=== PATIENT | female | born 1965 | race African-American/Black ===

== ENCOUNTER → 2016-12-25 | Outpatient (CLI) | payer MEDICARE, MEDICAID ==
--- NOTE | 2016-12-25 16:22 | WOMENS IMAGING REPORT ---
EXAM DESCRIPTION: BILAT SCREENING MAMMO W/CAD COMPLETED DATE/TIME: 12/25/2016 2:05 pm REASON FOR STUDY: Z12.31, ROUTINE SCREENING MAMMO Z12.31 ENCNTR SCREEN MAMMOGRAM FOR MALIGNANT NEOP LASM OF RAMAN COMPARISON: None. TECHNIQUE: Standard craniocaudal and mediolateral oblique views of each breast recorded using Rocketskates[employer] l acquisition. LIMITATIONS: None. FINDINGS: RIGHT BREAST MASSES: No suspicious masses. CALCIFICATIONS: No new or suspicious calcifications. ARCHITECTURAL DISTORTION: None. DEVELOPING DENSITY: None. ASYMMETRY: Asymmetry in the right breast lateral CC view 11 cm from the nipple with increased density compare with previous. OTHER: No other significant findings. LEFT BREAST MASSES: No suspicious masses. CALCIFICATIONS: No new or suspicious calcifications. ARCHITECTURAL DISTORTION: None. DEVELOPING DENSITY: None. ASYMMETRY: None noted. OTHER: No other significant findings. Read with the assistance of CAD. .[facility] - R2 Cenova Version 1.3 .[facility] Imaging - R2 Cenova Version 1.3 .[facility] - R2 Cenova Version 2.4 .[facility] [place] - R2 Cenova Version 2.4 .[facility] - R2 Audio Tape Librarian Version 9.2 IMPRESSION: Asymmetry and density in the right breast BREAST DENSITY: d. The breasts are extremely dense, which lowers the sensitivity of mammography. BIRAD: 0 Incomplete: Needs Additional Imaging Evaluation and/or prior Mammograms for Comparison. RECOMMENDATION: RECOMMENDED FOLLOW-UP: Spot compression with ultrasound if indicated. The patient will be contacted for additional imaging. COMMENT: The patient has been notified of the results by letter per SA requirements. Additional no tification policies are in place for contacting patient with suspicious or incomplete findings. Quality ID #[id number]: The [employer] recommends an annual screening mammogram for women aged 40 years or over. This facility utilizes a reminder system to ensure that all patients receive reminder letters, and/or direct phone calls for appointments. This includes reminders for routine scr eening mammograms, diagnostic mammograms, or other Breast Imaging Interventions when appropriate. Th is patient will be placed in the appropriate reminder system. The [employer] (ACR) has developed recommendations for screening MRI of the breast s in certain patient populations, to be used in conjunction with mammography. Breast MRI surveillanc e may be appropriate for women with more than 20% lifetime risk of developing breast cancer as deter mined by genetic testing, significant family history of the disease, or history of mantle radiation f or Hodgkins Disease. ACR Practice Guidelines 2008. TECHNICAL DOCUMENTATION: FINDING NUMBER: (1) ASSESSMENT: (1) JOB ID: [id number] [employer]- All Rights Reserved
== END ==
LOC: WI 09:51
PROVIDERS: ATTEND Internal Medicine Geriatric Medicine
DX: Z12.31 Encounter for screening mammogram for malignant neoplasm of breast (principal)
CPT/HCPCS: 77067; G0202

== ENCOUNTER 2017-07-10 11:03 | Emergency (ER) | payer MEDICARE, MEDICAID ==
[2017-07-10] MEDS ORDERED: CLINDAMYCIN 900 MG/D5W RTU 50 ML IV ONE (12:36)
[2017-07-10] MEDS ORDERED: KETOROLAC TROMETHAMINE INJ/PF 30 MG/1 ML SDV IV ONE (12:37)
[2017-07-10] MEDS ORDERED: DEXAMETHASONE SOD PHOS INJ 10 MG/1 ML VIAL IV ONE (12:37)
[2017-07-10] MEDS ORDERED: ONDANSETRON HCL INJ/PF 4 MG/2 ML SDV IV ONE (12:37)
--- NOTE | 2017-07-10 13:16 | ER Document Report ---
ED General - General Chief Complaint: Pain All Over Stated Complaint: BODY ACHES Time Seen by Provider: 07/10/17 12:28 Notes: 51 yo female c/o throat pain and stiff neck x 5 days. hurts to swallow TRAVEL OUTSIDE OF THE [place] IN LAST 30 DAYS: No - HPI Onset/Duration: Gradual, Worse Quality of pain: Achy, Pressure Associated symptoms: Chills, Fever, Hoarseness, Nausea, Sore throat Exacerbated by: Food Relieved by: Denies Similar symptoms previously: No Recently seen / treated by doctor: No - Related Data Allergies/Adverse Reactions: fluphenazine enanthate [From Prolixin] Allergy (Verified 07/10/17 11:05) fluphenazine HCl [From Prolixin] Allergy (Verified 07/10/17 11:05) Past Medical History - General Information source: Patient - Social History Smoking Status: Current Every Day Smoker Frequency of alcohol use: Occasional Drug Abuse: None Lives with: Family Family History: Reviewed & Not Pertinent Patient has suicidal ideation: No Patient has homicidal ideation: No - Past Medical History Cardiac Medical History: Reports: Hx Hypercholesterolemia, Hx Hypertension Renal/ Medical History: Denies: Hx Peritoneal Dialysis GI Medical History: Reports: Hx Gastroesophageal Reflux Disease Psychiatric Medical History: Reports: Hx Schizoaffective Disorder - Immunizations Hx Diphtheria, Pertussis, Tetanus Vaccination: Yes Review of Systems - Review of Systems Constitutional: Chills, Fever, Malaise EENT: See HPI, Throat pain, Difficulty swallowing, Throat swelling Cardiovascular: No symptoms reported Respiratory: No symptoms reported Gastrointestinal: No symptoms reported Genitourinary: No symptoms reported Female Genitourinary: No symptoms reported Musculoskeletal: No symptoms reported Skin: No symptoms reported Hematologic/Lymphatic: No symptoms reported Neurological/Psychological: No symptoms reported Physical Exam - Vital signs Vitals: Temp Pulse Resp BP Pulse Ox 99.0 F 132 H 17 123/80 95 07/10/17 11:11 07/10/17 11:11 07/10/17 11:11 07/10/17 11:11 07/10/17 11:11 Interpretation: Normal - General General appearance: Appears well, Alert - HEENT Head: Normocephalic, Atraumatic Eyes: Normal Pupils: PERRL Tympanic membrane: Normal Pharynx: Erythema, Exudate, Tonsillar hypertrophy, Other - + trismus, + muffled voice - Respiratory Respiratory status: No respiratory distress Chest status: Nontender Breath sounds: Normal Chest palpation: Normal - Cardiovascular Rhythm: Regular Heart sounds: Normal auscultation Murmur: No - Abdominal Inspection: Normal Distension: No distension Bowel sounds: Normal Tenderness: Nontender Organomegaly: No organomegaly - Back Back: Normal, Nontender - Extremities General upper extremity: Normal inspection, Nontender, Normal color, Normal ROM , Normal temperature General lower extremity: Normal inspection, Nontender, Normal color, Normal ROM , Normal temperature, Normal weight bearing. No: Dakota's sign - Neurological Neuro grossly intact: Yes Cognition: Normal Orientation: AAOx4 Hebo Coma Scale Eye Opening: Spontaneous Luisa Coma Scale Verbal: Oriented Hebo Coma Scale Motor: Obeys Commands Hebo Coma Scale Total: 15 Speech: Normal Motor strength normal: LUE, RUE, LLE, RLE Sensory: Normal - Psychological Associated symptoms: Normal affect, Normal mood - Skin Skin Temperature: Warm Skin Moisture: Dry Skin Color: Normal Course - Re-evaluation Re-evalutation: 07/10/17 16:17 pt improved after meds. able to talk. drinking fluids without difficulty. CT negativee for abscess. +diffuse adenopathy. results reviewed with pt. no airway compromise. stable for discharge - Vital Signs Vital signs: Temp Pulse Resp BP Pulse Ox 99.0 F 132 H 17 123/80 95 07/10/17 11:11 07/10/17 11:11 07/10/17 11:11 07/10/17 11:11 07/10/17 11:11 - Laboratory Result Diagrams: 07/10/17 13:27 07/10/17 13:27 Laboratory results interpreted by me: 07/10/17 07/10/17 13:27 13:27 WBC 20.4 H RDW 16.1 H Band Neutrophils % 2 L Lymphocytes % (Manual) 11 L Metamyelocytes % 1 H Abs Neuts (Manual) 16.5 H Sodium 134.7 L Chloride 97 L Glucose 123 H AST 12 L Alkaline Phosphatase 147 H Discharge - Discharge Clinical Impression: Sore throat Disposition: HOME, SELF-CARE Instructions: Sore Throat ([facility]), IV Antibiotics ([facility]), Antibiotic Therapy ([facility]) , Toradol Injection ([facility]), Steroid Medication Injection, Steroid Medication Additional Instructions: please take antibiotics as prescribed take oral steroid as prescribed follow up with your primary care in the next 2 days for recheck return to ER for any worsening Prescriptions: Clindamycin HCl 300 mg PO QID #40 capsule Prednisone 20 mg PO BID #16 tablet Referrals: CONSTANZA VALLEJO MD [Primary Care Provider] - Follow up as needed
[2017-07-10 14:03] LABS: HEMATOCRIT 39.6 % (36.0-47.0); HEMOGLOBIN 13.2 g/dL (12.0-15.5); MEAN CORPUSCULAR HEMOGLOBIN 30.6 pg (27.0-33.4); MEAN CORPUSCULAR HGB CONC 33.4 g/dL (32.0-36.0); MEAN CORPUSCULAR VOLUME 91 fl (80-97); PLATELET COUNT 287 10^3/uL (150-450); RED BLOOD COUNT 4.33 10^6/uL (3.72-5.28); RED CELL DISTRIBUTION WIDTH 16.1 % (11.5-14.0); WHITE BLOOD COUNT 20.4 10^3/uL (4.0-10.5)
[2017-07-10 14:19] LABS: ABSOLUTE LYMPHOCYTES# (MANUAL) 2.9 10^3/uL (0.5-4.7); ABSOLUTE NEUTROPHILS# (MANUAL) 16.5 10^3/uL (1.7-8.2); BAND NEUTROPHILS % (MANUAL) 2 % (3-5); BASOPHILS % (MANUAL) 0 % (0-2); EOSINOPHILS % (MANUAL) 0 % (0-6); LYMPHOCYTES % (MANUAL) 11 % (13-45); METAMYELOCYTES % (MANUAL) 1 % (0); MONOCYTES % (MANUAL) 5 % (3-13); SEGMENTED NEUTROPHILS % (MAN) 78 % (42-78); TOTAL CELLS COUNTED 100
[2017-07-10 14:20] LABS: ANISOCYTOSIS 1+; PLATELET COMMENT ADEQUATE; POLYCHROMASIA 1+
[2017-07-10 14:25] LABS: ALANINE AMINOTRANSFERASE 21 U/L (9-52); ALBUMIN 3.8 g/dL (3.5-5.0); ALKALINE PHOSPHATASE 147 U/L (38-126); ANION GAP 10 (5-19); ASPARTATE AMINO TRANSFERASE 12 U/L (14-36); BILIRUBIN,DIRECT 0.3 mg/dL (0.0-0.4); BILIRUBIN,TOTAL 0.4 mg/dL (0.2-1.3); BLOOD UREA NITROGEN 11 mg/dL (7-20); CALCIUM 9.7 mg/dL (8.4-10.2); CARBON DIOXIDE 28 mmol/L (22-30); CHLORIDE 97 mmol/L (98-107); GLUCOSE 123 mg/dL (75-110); POTASSIUM 3.6 mmol/L (3.6-5.0); SODIUM 134.7 mmol/L (137-145); TOTAL PROTEIN 7.5 g/dL (6.3-8.2)
--- NOTE | 2017-07-10 15:34 | RADIOLOGY REPORT (SQ) ---
EXAM DESCRIPTION: CT SOFT TISSUE NECK WITH COMPLETED DATE/TIME: 07/10/2017 2:59 pm REASON FOR STUDY: ? peritonsillar abscess COMPARISON: None. TECHNIQUE: Post IV contrasted scanning from skull base through lung apices with review of bone, soft tissue and lung windows. Reconstructed coronal and sagittal MPR images reviewed. All images stored on PACS. All CT scanners at this facility use dose modulation, iterative reconstruction, and/or weight based d osing when appropriate to reduce radiation dose to as low as reasonably achievable (ALARA). [facility]: Dose Right [facility]: CareDose [facility]: Dose Right [facility]: Teradose 4D [facility]: POPSUGAR CONTRAST TYPE AND DOSE: contrast/concentration: Isovue 370.00 mg/ml; Total Contrast Delivered: 75.0 ml; Total Saline Delivered: 38.8 ml RENAL FUNCTION: Creatinine 0.8 RADIATION DOSE: CT Rad equipment meets quality standard of care and radiation dose reduction techniq ues were employed. CTDIvol: 17.1 mGy. DLP: 584 mGy-cm. . LIMITATIONS: None. FINDINGS: SKULL BASE: Bilateral basal ganglia calcifications are present. Chenega Bhatt atheroscler otic vascular calcification. Inferior brain in the field of view otherwise unremarkable. MAJOR SALIVARY GLANDS: No solid or cystic masses. No inflammatory changes. LYMPHADENOPATHY: Diffuse cervical adenopathy is present, right jugulodigastric lymph node 1.8 x 1.7 c m, left jugulodigastric lymph node 2.6 x 1.7 cm. Multiple other 1 cm short axis lymph nodes are seen throughout the bilateral carotid spaces and posterior triangles. MUCOSAL MASSES OR ASYMMETRY: No mucosal masses or asymmetry. Pharyngeal tonsils are not enlarged. N o inflammation along the deep aspect of the tonsils to suggest peritonsillar abscess. LARYNX/CORDS: No abnormal findings. VASCULAR STRUCTURES: The major vessels are patent. Please note that the internal carotid artery on t he right swings into the prevascular space, best shown on coronal image 42 LUNG APICES: Clear. BONES: Intact. THYROID: Normal size. No masses. PARANASAL SINUSES: Mucous membrane thickening inferior left maxillary sinus. OTHER: No other significant finding. IMPRESSION: No tonsillar or peritonsillar abscess Diffuse cervical adenopathy TECHNICAL DOCUMENTATION: JOB ID: [id number] Quality ID # [id number]: Final reports with documentation of one or more dose reduction techniques (e.g., Au tomated exposure control, adjustment of the mA and/or kV according to patient size, use of iterative reconstruction technique) 2010 [employer]- All Rights Reserved
[2017-07-10 17:01] VITALS: BP 115/78
== END 2017-07-10 17:01 | disposition home or self-care (01) ==
LOC: ER 11:03
DX: J02.9 Acute pharyngitis, unspecified (principal); J35.1 Hypertrophy of tonsils; R11.0 Nausea; R50.9 Fever, unspecified; R13.10 Dysphagia, unspecified; R49.0 Dysphonia; M43.6 Torticollis; I10 Essential (primary) hypertension; F17.200 Nicotine dependence, unspecified, uncomplicated; Z88.8 Allergy status to other drugs, medicaments and biological substances
CPT/HCPCS: 99284; 96375; 96365; 36415; 87040; 87070; 87880; 85025; 80053; 70491; J1885; J2405; J1100

== ENCOUNTER 2017-10-22 03:19 | Emergency (ER) | payer MEDICARE, MEDICAID ==
[2017-10-22] MEDS ORDERED: HYDROCODONE/ACETAMINOPHEN 5-325 MG TABLET PO ONE (04:05)
--- NOTE | 2017-10-22 04:09 | ER Document Report ---
HPI - HPI Patient complains to provider of: Foot pain Onset: Other - 2 weeks Onset/Duration: Worse Quality of pain: Achy Pain Level: 3 Context: Patient presents complaining of right foot pain for the past 2 weeks with left foot pain that just started yesterday. Patient states she has been seeing a offc spec regarding her right foot pain. Patient has been placed in a walking boot and has been having studies performed on an outpatient basis. Patient is poor historian. Patient denies any fever or injury. Patient also reports left knee tenderness. Associated Symptoms: Other - Bilateral foot pain. denies: Fever, Vomiting Exacerbated by: Movement, Walking Relieved by: Denies Similar symptoms previously: Yes Recently seen / treated by doctor: Yes - ROS ROS below otherwise negative: Yes Systems Reviewed and Negative: Yes All other systems reviewed and negative - CONSTITUTIONAL Constitutional: DENIES: Fever, Chills - NEURO Neurology: DENIES: Headache, Weakness - RESPIRATORY Respiratory: DENIES: Trouble Breathing, Coughing - GASTROINTESTINAL Gastrointestinal: DENIES: Nausea, Patient vomiting - REPRODUCTIVE Reproductive: DENIES: : - MUSCULOSKELETAL Musculoskeletal: REPORTS: Extremity pain, Swelling - Right foot - DERM Skin Color: Normal Skin Problems: None Past Medical History - General Information source: Patient - Social History Smoking Status: Current Every Day Smoker Smoking Education Provided: Yes Frequency of alcohol use: None Drug Abuse: None Lives with: Other - [facility] Family History: Reviewed & Not Pertinent - Past Medical History Cardiac Medical History: Reports: Hx Hypercholesterolemia, Hx Hypertension Renal/ Medical History: Denies: Hx Peritoneal Dialysis GI Medical History: Reports: Hx Gastroesophageal Reflux Disease Psychiatric Medical History: Reports: Hx Schizoaffective Disorder Surgical Hx: Negative - Immunizations Hx Diphtheria, Pertussis, Tetanus Vaccination: Yes Vertical Provider Document - CONSTITUTIONAL Agree With Documented VS: Yes Exam Limitations: No Limitations General Appearance: WD/WN, No Apparent Distress - INFECTION CONTROL TRAVEL OUTSIDE OF THE [place] IN LAST 30 DAYS: No - HEENT HEENT: Atraumatic, Normocephalic - NECK Neck: Normal Inspection - RESPIRATORY Respiratory: Breath Sounds Normal, No Respiratory Distress - CARDIOVASCULAR Cardiovascular: Regular Rate, Regular Rhythm Pulses: Normal: Dorsalis pedis - MUSCULOSKELETAL/EXTREMETIES Musculoskeletal/Extremeties: MAEW, Tender - Bilateral foot tenderness to medial midfoot area, right foot generalized 1-2+ edema, Edema Notes: Normal skin color and temperature overlying joint left knee and bilateral feet Left knee tenderness to medial inferior compartment, patient with cystic type mobile lesion - NEURO Level of Consciousness: Awake, Alert, Appropriate Motor/Sensory: No Motor Deficit - DERM Integumentary: Warm, Dry Course - Re-evaluation Re-evalutation: 10/22/17 06:[address] Steward, Dr Steward to bedside for examination. Does not recommend any additional testing. Recommends outpatient follow-up with her primary doctor for further evaluation. Does not suspect cellulitis given the appearance of the joint, no concern for abscess or septic arthritis. - Vital Signs Vital signs: Temp Pulse Resp BP Pulse Ox 99.0 F 91 16 118/70 97 10/22/17 03:28 10/22/17 03:28 10/22/17 03:28 10/22/17 03:28 10/22/17 03:28 - Laboratory Result Diagrams: 10/22/17 04:15 Laboratory results interpreted by me: 10/22/17 06:47 Labs- Entire Visit 10/22/17 10/22/17 04:15 04:15 WBC 12.6 H RBC 3.68 L Hgb 11.8 L Hct 34.5 L MCV 94 MCH 32.1 MCHC 34.2 RDW 15.8 H Plt Count 338 Seg Neutrophils % 75.8 Lymphocytes % 16.6 Monocytes % 5.7 Eosinophils % 1.5 Basophils % 0.4 Absolute Neutrophils 9.6 H Absolute Lymphocytes 2.1 Absolute Monocytes 0.7 Absolute Eosinophils 0.2 Absolute Basophils 0.1 ESR 67 H Uric Acid 5.3 C-Reactive Protein 45.4 H - Diagnostic Test Radiology reviewed: Pending, Image reviewed Discharge - Discharge Clinical Impression: Bilateral foot pain Arthralgia Qualifiers: Joint pain location: unspecified Qualified Code(s): M25.50 - Pain in unspecified joint Condition: Stable Disposition: HOME, SELF-CARE Instructions: Arthralgia ([facility]), Oral Narcotic Medication ([facility]), Toradol Injection ([facility]) Additional Instructions: Return immediately for any new or worsening symptoms Followup with your primary care provider, call tomorrow to make a followup appointment Follow-up with your offc spec or an orthopedic doctor for further evaluation Prescriptions: Hydrocodone/Acetaminophen [[place] 5-325 Tablet] 1 each PO Q8 PRN #12 tablet PRN Reason: Referrals: CONSTANZA VALLEJO MD [Primary Care Provider] - Follow up as needed [facility] [Provider Group] - Follow up as needed GLADYS SANTACRUZ DPM [ACTIVE STAFF] - Follow up as needed KAUSHIK GUZMAN DPM [ACTIVE STAFF] - Follow up as needed
[2017-10-22 04:28] LABS: ABSOLUTE BASOPHILS # (AUTO) 0.1 10^3/uL (0.0-0.2); ABSOLUTE EOSINOPHILS # (AUTO) 0.2 10^3/uL (0.0-0.6); ABSOLUTE LYMPHOCYTES (AUTO) 2.1 10^3/uL (0.5-4.7); ABSOLUTE MONOCYTES (AUTO) 0.7 10^3/uL (0.1-1.4); ABSOLUTE NEUT (AUTO) 9.6 10^3/uL (1.7-8.2); BASOPHILS % (AUTO) 0.4 % (0-2); EOSINOPHILS % (AUTO) 1.5 % (0-6); HEMATOCRIT 34.5 % (36.0-47.0); HEMOGLOBIN 11.8 g/dL (12.0-15.5); LYMPHOCYTES % (AUTO) 16.6 % (13-45); MEAN CORPUSCULAR HEMOGLOBIN 32.1 pg (27.0-33.4); MEAN CORPUSCULAR HGB CONC 34.2 g/dL (32.0-36.0); MEAN CORPUSCULAR VOLUME 94 fl (80-97); MONOCYTES % (AUTO) 5.7 % (3-13); PLATELET COUNT 338 10^3/uL (150-450); RED BLOOD COUNT 3.68 10^6/uL (3.72-5.28); RED CELL DISTRIBUTION WIDTH 15.8 % (11.5-14.0); SEGMENTED NEUTROPHILS % (AUTO) 75.8 % (42-78); TOTAL CELLS COUNTED % (AUTO) 100 %; WHITE BLOOD COUNT 12.6 10^3/uL (4.0-10.5)
[2017-10-22 04:41] LABS: C-REACTIVE PROTEIN 45.4 mg/L (<10.0); URIC ACID 5.3 mg/dL (2.5-7.5)
[2017-10-22 05:20] LABS: ERYTHROCYTE SEDIMENTATION RATE 67 mm/hr (0-30)
[2017-10-22] MEDS ORDERED: KETOROLAC TROMETHAMINE 60 MG/2 ML SDV IM ONE (06:47)
--- NOTE | 2017-10-22 08:03 | RADIOLOGY REPORT (SQ) ---
EXAM DESCRIPTION: FOOT RIGHT COMPLETE COMPLETED DATE/TIME: 10/22/2017 5:00 am REASON FOR STUDY: r foot pain, swelling COMPARISON: None. NUMBER OF VIEWS: Three views. TECHNIQUE: AP, lateral and oblique radiographic images acquired of the right foot. LIMITATIONS: None. FINDINGS: MINERALIZATION: Normal. BONES: No acute fracture or dislocation. No worrisome bone lesions. JOINTS: No effusions. SOFT TISSUES: No soft tissue swelling. No foreign body. OTHER: Small plantar heel spur. IMPRESSION: Small heel spur. No other significant soft tissue or bony abnormality. TECHNICAL DOCUMENTATION: JOB ID: [id number] [employer]- All Rights Reserved Reading location - IP/workstation name: [email or web address]
[2017-10-22 08:19] VITALS: BP 129/71
== END 2017-10-22 09:21 | disposition home or self-care (01) ==
LOC: ER 03:19
DX: M79.672 Pain in left foot (principal); M79.671 Pain in right foot; M25.50 Pain in unspecified joint; F17.200 Nicotine dependence, unspecified, uncomplicated; E78.00 Pure hypercholesterolemia, unspecified; I10 Essential (primary) hypertension
CPT/HCPCS: 99284; 96372; 36415; 84550; 85025; 85652; 86140; 73630; J1885; A9270

== ENCOUNTER → 2018-11-14 | Outpatient (CLI) | payer MEDICARE, MEDICAID ==
--- NOTE | 2018-11-14 12:01 | WOMENS IMAGING REPORT ---
EXAM DESCRIPTION: 3D SCREENING MAMMO BILAT COMPLETED DATE/TIME: 11/14/2018 11:40 am REASON FOR STUDY: Z12.31 ROUTINE 3D BILATERAL SCREENING Z12.31 ENCNTR SCREEN MAMMOGRAM FOR MALIGNAN T NEOPLASM OF RAMAN COMPARISON: 2016 EXAM PARAMETERS: Standard craniocaudal and mediolateral oblique views of each breast recorded using digital acquisition and breast tomosynthesis. Read with the assistance of CAD. .[facility] - R2 Construction Scheduler Version 9.2 LIMITATIONS: None. FINDINGS: Findings present which are benign by mammographic criteria. No suspicious masses, calcific ations or architectural distortion. Pertinent benign findings: Calcifications. Benign mammographic findings may include one or more of the following: Smooth masses, popcorn/rim/coa rse calcifications, asymmetries, post-procedure changes, and lesions with long-standing stability. IMPRESSION: Assessment: BENIGN MAMMOGRAPHIC FINDINGS. BIRADS 2 BREAST DENSITY: c. The breasts are heterogeneously dense, which may obscure small masses. BIRAD: 2 BENIGN FINDING(S) RECOMMENDATION: ROUTINE SCREENING COMMENT: The patient has been notified of the results by letter per SA requirements. Additional no tification policies are in place for contacting patient with suspicious or incomplete findings. Quality ID #[id number]: The [employer] recommends an annual screening mammogram for women aged 40 years or over. This facility utilizes a reminder system to ensure that all patients receive reminder letters, and/or direct phone calls for appointments. This includes reminders for routine scr eening mammograms, diagnostic mammograms, or other Breast Imaging Interventions when appropriate. Th is patient will be placed in the appropriate reminder system. TECHNICAL DOCUMENTATION: FINDING NUMBER: (1) ASSESSMENT: (1) JOB ID: [id number] [employer]- All Rights Reserved Reading location - IP/workstation name: [email or web address]
== END ==
LOC: WI 11:10
PROVIDERS: ATTEND Internal Medicine Geriatric Medicine
DX: Z12.31 Encounter for screening mammogram for malignant neoplasm of breast (principal)
CPT/HCPCS: 77063; 77067

== ENCOUNTER 2019-12-30 07:51 | Day surgery (SDC) | payer MEDICARE, MEDICAID ==
[~2019-12-30 07:51] MED LIST: KETOROLAC TROMETHAMINE 0.45% 4 DROP/0.4 ML DROPERETTE OS PRN
[2019-12-30] MEDS: TETRACAINE HCL 0.5% OPH SOLN 4 ML OS PRN ×4 (08:26→08:52)
[2019-12-30] MEDS: CYCLOPENTOLATE 0.2%/PHENYLEPHRINE 1% OPH SOLN 2 ML OS PRN ×3 (08:26→08:42)
[2019-12-30] MEDS: TROPICAMIDE 1% OPH SOLN 15 ML OS PRN ×3 (08:27→08:42)
[2019-12-30] MEDS: BESIFLOXACIN HCL 0.6% OPH SUSP 5 ML BOTTLE OS PRN ×4 (08:27→09:16)
[2019-12-30] MEDS ORDERED: FENTANYL CITRATE INJ/PF 100 MCG/2 ML AMPUL ONE (08:34)
[2019-12-30] MEDS ORDERED: MIDAZOLAM 2 MG/2 ML INJ ONE (08:34)
[2019-12-30] MEDS: CHONDR SU A NA/HYALUR INTRAOC KIT (SURGICARE) ONE ×2 (09:03)
[2019-12-30] MEDS: EPINEPHRINE INJ/PF 1 MG/1 ML AMPULE ONE ×2 (09:03)
[2019-12-30] MEDS: LIDOCAINE 1%/PHENYLEPHRINE 1.5% 1 ML VIAL ONE ×2 (09:04)
[2019-12-30] MEDS: DORZOLAMIDE HCL 2%/TIMOLOL MALEAT 0.5% OPH SOLN 10 ML OS PRN ×2 (09:16)
--- NOTE | 2019-12-30 11:08 | Operative Report ---
Operative Report-[facility] Operative Report: DATE OF SURGERY: December 30, 2019 PREOPERATIVE DIAGNOSIS: NUCLEAR CATARACT, LEFT EYE. Glaucoma POSTOPERATIVE DIAGNOSIS: NUCLEAR CATARACT, LEFT EYE. Glaucoma PROCEDURE PERFORMED: PHACOEMULSIFICATION WITH POSTERIOR CHAMBER INTRAOCULAR LENS IMPLANT, LEFT EYE. With mariama SURGEON: Daniel Salgado DO MEDICATIONS AND ANESTHESIA: Versed: IV Versed Tetracaine drops: 1 to 2 drops given as needed COMPLICATION: [None] INDICATIONS FOR SURGERY: Medical necessity: Best corrected visual acuity worse than 20/40 secondary to cataracts with impairment of ability to carry out needs or desired activities, blurred vision, visual distortion, reduced contrast sensitivity and/or glare with association functional impairment and supporting documentation/testing, and cataracts causing symptomatic impairment of visual functions not corrected with tolerable changes in glasses or contact lenses interfering with activities of daily life. PROCEDURE: Consent: The risks, benefits and alternatives of this procedures was discussed with the patient. The patient read and signed the consent forms, was identified and was seated in the exam chair. IOL: [ ] IOL Diopters: [] Phacoemulsification with posterior chamber intraocular lens implant: The face was prepped with 5% povidone iodine solution, and a few drops of 5% povidone iodine solution was instilled into the inferior fornix. A non-fenestrated drape was placed over the eye and the lids were parted with the speculum. A paracentesis was made with a 15 degree blade, and 1% lidocaine MPF followed by viscoelastic was injected into the anterior chamber. A 2.4 mm metal micro- keratome was used to create a temporal clear corneal incision. A circular anterior capsulorrhexis was created, followed by hydro-dissection and hydro- delineation. The phacoemulsification hand piece was inserted and the nucleus was removed with the Phaco chop technique. The irrigation-aspiration hand piece was used to remove the residual cortex, and vacuum the posterior capsule. The capsular bag was inflated and viscoelastic and the above-mentioned IOL was injected into the eye with care to insert both leaning and trailing haptics in the capsular bag. The irrigation/aspiration hand piece was reinserted to remove residual viscoelastic from the capsular bag and anterior chamber. The corneal incision was hydrated, and anterior chamber was inflated with sterile BSS via the paracentesis site, and found to be watertight. In addition Istent inject was used, 2 stents were placed approximately 2 clock hours apart Postop medication:1 drop of prednisolone into operative by followed by 1 drop of Cosopt into operative eye followed by 1 drop of Besivance intraoperative by Other: []
== END 2019-12-30 10:04 | disposition home or self-care (01) ==
LOC: SC 07:51
PROVIDERS: ATTEND Ophthalmology
DX: H25.12 Age-related nuclear cataract, left eye (principal); H40.1131 Primary open-angle glaucoma, bilateral, mild stage; Z88.8 Allergy status to other drugs, medicaments and biological substances; I10 Essential (primary) hypertension; E78.00 Pure hypercholesterolemia, unspecified; K21.9 Gastro-esophageal reflux disease without esophagitis; F17.210 Nicotine dependence, cigarettes, uncomplicated
CPT/HCPCS: 66984; 0191T; C1783; V2632; J2250; J3490 ×2; A9270; J0171; J3010

== ENCOUNTER 2020-01-13 13:33 | Day surgery (SDC) | payer MEDICARE, MEDICAID ==
[~2020-01-13 13:33] MED LIST changes: +CHONDR SU A NA/HYALUR INTRAOC KIT (SURGICARE) ONE; +EPINEPHRINE INJ/PF 1 MG/1 ML AMPULE ONE; +KETOROLAC TROMETHAMINE 0.45% 4 DROP/0.4 ML DROPERETTE OD PRN; -KETOROLAC TROMETHAMINE 0.45% 4 DROP/0.4 ML DROPERETTE OS PRN; +LIDOCAINE 1%/PHENYLEPHRINE 1.5% 1 ML VIAL ONE
[2020-01-13] MEDS: BESIFLOXACIN HCL 0.6% OPH SUSP 5 ML BOTTLE OD PRN ×4 (14:00→14:56)
[2020-01-13] MEDS: CYCLOPENTOLATE 0.2%/PHENYLEPHRINE 1% OPH SOLN 2 ML OD PRN ×3 (14:00→14:20)
[2020-01-13] MEDS: TETRACAINE HCL 0.5% OPH SOLN 4 ML OD PRN ×3 (14:00→14:34)
[2020-01-13] MEDS: TROPICAMIDE 1% OPH SOLN 15 ML OD PRN ×3 (14:00→14:20)
[2020-01-13] MEDS ORDERED: FENTANYL CITRATE INJ/PF 100 MCG/2 ML AMPUL ONE (14:14)
[2020-01-13] MEDS ORDERED: MIDAZOLAM 2 MG/2 ML INJ ONE (14:14)
[2020-01-13] MEDS ORDERED: EPINEPHRINE INJ/PF 1 MG/1 ML AMPULE ONE (14:18)
[2020-01-13] MEDS: DORZOLAMIDE HCL 2%/TIMOLOL MALEAT 0.5% OPH SOLN 10 ML OD PRN ×2 (14:56)
--- NOTE | 2020-01-13 15:04 | Operative Report ---
Operative Report-[facility] Operative Report: DATE OF SURGERY: January 13, 2020 PREOPERATIVE DIAGNOSIS: NUCLEAR CATARACT, RIGHT EYE., Glaucoma POSTOPERATIVE DIAGNOSIS: NUCLEAR CATARACT, RIGHT EYE. Glaucoma PROCEDURE PERFORMED: PHACOEMULSIFICATION WITH POSTERIOR CHAMBER INTRAOCULAR LENS IMPLANT, RIGHT EYE. I stent inject SURGEON: Daniel Salgado DO MEDICATIONS AND ANESTHESIA: Versed: IV Versed Tetracaine drops: 1 to 2 drops given as needed COMPLICATION: None INDICATIONS FOR SURGERY: Medical necessity: Best corrected visual acuity worse than 20/40 secondary to cataracts with impairment of ability to carry out needs or desired activities, blurred vision, visual distortion, reduced contrast sensitivity and/or glare with association functional impairment and supporting documentation/testing, and cataracts causing symptomatic impairment of visual functions not corrected with tolerable changes in glasses or contact lenses interfering with activities of daily life. PROCEDURE: Consent: The risks, benefits and alternatives of this procedures was discussed with the patient. The patient read and signed the consent forms, was identified and was seated in the exam chair. IOL: MX 60 E 21.5 IOL Diopters: Phacoemulsification with posterior chamber intraocular lens implant: The face was prepped with 5% povidone iodine solution, and a few drops of 5% povidone iodine solution was instilled into the inferior fornix. A non-fenestrated drape was placed over the eye and the lids were parted with the speculum. A paracentesis was made with a 15 degree blade, and 1% lidocaine MPF followed by viscoelastic was injected into the anterior chamber. A 2.4 mm metal micro- keratome was used to create a temporal clear corneal incision. A circular anteri or capsulorrhexis was created, followed by hydro-dissection and hydro- delineation. The phacoemulsification hand piece was inserted and the nucleus was removed with the Phaco chop technique. The irrigation-aspiration hand piece was used to remove the residual cortex, and vacuum the posterior capsule. The capsular bag was inflated and viscoelastic and the above-mentioned IOL was injected into the eye with care to insert both leaning and trailing haptics in the capsular bag. The irrigation/aspiration hand piece was reinserted to remove residual viscoelastic from the capsular bag and anterior chamber. The corneal incision was hydrated, and anterior chamber was inflated with sterile BSS via the paracentesis site, and found to be watertight. In addition I stent inject was used to place 2 stents approximately 2 clock hours apart Postop medication: 1 drop of prednisolone into operative by followed by 1 drop of Cosopt into operative eye followed by 1 drop of Besivance intraoperative by other:
== END 2020-01-13 15:28 ==
LOC: SC 13:33
PROVIDERS: ATTEND Ophthalmology
DX: H25.11 Age-related nuclear cataract, right eye (principal); H40.1111 Primary open-angle glaucoma, right eye, mild stage; Z88.8 Allergy status to other drugs, medicaments and biological substances; I10 Essential (primary) hypertension; E78.00 Pure hypercholesterolemia, unspecified; K21.9 Gastro-esophageal reflux disease without esophagitis; Z98.42 Cataract extraction status, left eye
CPT/HCPCS: 66984; 0191T; C1783; V2632; J2250; J3490 ×2; A9270; J0171; J3010

== ENCOUNTER 2020-06-17 16:39 | Inpatient (IN) | payer MEDICARE, MEDICAID ==
--- NOTE | 2020-06-17 18:08 | ER Document Report ---
ED Medical Screen (RME) - General Stated Complaint: RASH AND PAIN Time Seen by Provider: 06/17/20 17:58 Primary Care Provider: CONSTANZA VALLEJO MD [Primary Care Provider] - Follow up as needed Notes: Patient presents complaining of rash for the past week. Patient was started on antibiotics for possible skin infection and states that her rashes continue to worsen. Patient states she has leg pain and feels as though she is unable to walk due to the pain. Patient states she almost fell at home. Patient with a history of hypertension acid reflux and schizophrenia. I have greeted and performed a rapid initial assessment of this patient. A comprehensive ED assessment and evaluation of the patient, analysis of test results and completion of the medical decision making process will be conducted by additional ED providers. TRAVEL OUTSIDE OF THE [place] IN LAST 30 DAYS: No - Related Data Allergies/Adverse Reactions: fluphenazine enanthate [From Prolixin] Allergy (Verified 07/10/17 11:05) fluphenazine HCl [From Prolixin] Allergy (Verified 07/10/17 11:05) Past Medical History - Past Medical History Cardiac Medical History: Reports: Hx Hypercholesterolemia, Hx Hypertension Denies: Hx Heart Attack Pulmonary Medical History: Denies: Hx Asthma Neurological Medical History: Denies: Hx Cerebrovascular Accident, Hx Seizures Renal/ Medical History: Denies: Hx Peritoneal Dialysis GI Medical History: Reports: Hx Gastroesophageal Reflux Disease. Denies: Hx Hepatitis, Hx Hiatal Hernia Psychiatric Medical History: Reports: Hx Schizoaffective Disorder Infectious Medical History: Denies: Hx Hepatitis Past Surgical History: Denies: Hx Mastectomy, Hx Open Heart Surgery, Hx Pacemaker. Comment Only: Hx Hysterectomy - ([facility]-unable to answer) - Immunizations Hx Diphtheria, Pertussis, Tetanus Vaccination: Yes Physical Exam - Vital signs Vitals: Temp Pulse Resp BP Pulse Ox 99.2 F 116 H 20 119/63 95 06/17/20 16:44 06/17/20 16:44 06/17/20 16:44 06/17/20 16:44 06/17/20 16:44 - Skin Skin Temperature: Warm Skin Moisture: Dry Skin Color: Erythema - Patient with erythematous rash to bilateral lower extremities. Patient with some lesions that measure 2 to 3 mm in diameter and other lesions that have coalesced, patient with exquisite tenderness with minimal palpation of the legs Course - Vital Signs Vital signs: Temp Pulse Resp BP Pulse Ox 99.2 F 116 H 20 119/63 95 06/17/20 16:44 06/17/20 16:44 06/17/20 16:44 06/17/20 16:44 06/17/20 16:44 Doctor's Discharge - Discharge Referrals: CONSTANZA VALLEJO MD [Primary Care Provider] - Follow up as needed
[2020-06-17 19:15] LABS: ABSOLUTE BASOPHILS # (AUTO) 0.1 10^3/uL (0.0-0.2); ABSOLUTE EOSINOPHILS # (AUTO) 0.1 10^3/uL (0.0-0.6); ABSOLUTE LYMPHOCYTES (AUTO) 1.5 10^3/uL (0.5-4.7); ABSOLUTE MONOCYTES (AUTO) 1.3 10^3/uL (0.1-1.4); ABSOLUTE NEUT (AUTO) 15.1 10^3/uL (1.7-8.2); BASOPHILS % (AUTO) 0.6 % (0-2); EOSINOPHILS % (AUTO) 0.7 % (0-6); HEMATOCRIT 37.3 % (36.0-47.0); HEMOGLOBIN 12.9 g/dL (12.0-15.5); LYMPHOCYTES % (AUTO) 8.4 % (13-45); MEAN CORPUSCULAR HEMOGLOBIN 30.6 pg (27.0-33.4); MEAN CORPUSCULAR HGB CONC 34.6 g/dL (32.0-36.0); MEAN CORPUSCULAR VOLUME 88 fl (80-97); MONOCYTES % (AUTO) 7.3 % (3-13); PLATELET COUNT 329 10^3/uL (150-450); RED BLOOD COUNT 4.22 10^6/uL (3.72-5.28); RED CELL DISTRIBUTION WIDTH 16.8 % (11.5-14.0); TOTAL CELLS COUNTED % (AUTO) 100 %; WHITE BLOOD COUNT 18.3 10^3/uL (4.0-10.5)
[2020-06-17 19:34] LABS: ALBUMIN 3.6 g/dL (3.5-5.0); ALKALINE PHOSPHATASE 161 U/L (38-126); ANION GAP 9 (5-19); ASPARTATE AMINO TRANSFERASE 14 U/L (14-36); BILIRUBIN,DIRECT 0.3 mg/dL (0.0-0.4); BILIRUBIN,TOTAL 0.6 mg/dL (0.2-1.3); BLOOD UREA NITROGEN 16 mg/dL (7-20); CALCIUM 9.5 mg/dL (8.4-10.2); CARBON DIOXIDE 28 mmol/L (22-30); CHLORIDE 98 mmol/L (98-107); GLUCOSE 149 mg/dL (75-110); POTASSIUM 3.8 mmol/L (3.6-5.0); TOTAL PROTEIN 7.7 g/dL (6.3-8.2)
--- NOTE | 2020-06-17 21:28 | ER Document Report ---
ED General - General Stated Complaint: RASH AND PAIN Time Seen by Provider: 06/17/20 17:58 Primary Care Provider: CONSTANZA VALLEJO MD [Primary Care Provider] - Follow up as needed TRAVEL OUTSIDE OF THE [place] IN LAST 30 DAYS: No - HPI Context: Chief Complaint: [Bilateral leg rash and pain] [This is a 54-year-old female presenting with a bilateral lower extremity rash that has been present for a week. Patient has a patient of Dr. Renee shaw. Patient states she was put on antibiotics earlier this week without improvement in the symptoms. Patient states rash is painful and makes it very difficult for her to walk. ] History obtained from [patient] Symptoms began:[1 week ago] Onset: [Gradual] Timing: [Gradual] Quality: [Sharp] Intensity: [5 out of 5] Location: [Bilateral lower legs] Radiation: [Denies] [The pain does not migrate to a new location.] Aggravating factors: [none] Relieving factors: [none] [Denies] SOB [Denies] nausea [Denies] vomiting [Denies] sweats [Denies] fever [Denies] cough - Related Data Allergies/Adverse Reactions: fluphenazine enanthate [From Prolixin] Allergy (Verified 07/10/17 11:05) fluphenazine HCl [From Prolixin] Allergy (Verified 07/10/17 11:05) Past Medical History - General Information source: Patient - Social History Smoking Status: Unknown if Ever Smoked Family History: Reviewed & Not Pertinent - Past Medical History Cardiac Medical History: Reports: Hx Hypercholesterolemia, Hx Hypertension Denies: Hx Heart Attack Pulmonary Medical History: Denies: Hx Asthma Neurological Medical History: Denies: Hx Cerebrovascular Accident, Hx Seizures Renal/ Medical History: Denies: Hx Peritoneal Dialysis GI Medical History: Reports: Hx Gastroesophageal Reflux Disease. Denies: Hx Hepatitis, Hx Hiatal Hernia Psychiatric Medical History: Reports: Hx Schizoaffective Disorder Infectious Medical History: Denies: Hx Hepatitis Past Surgical History: Denies: Hx Mastectomy, Hx Open Heart Surgery, Hx Pacemaker. Comment Only: Hx Hysterectomy - ([facility]-unable to answer) - Immunizations Hx Diphtheria, Pertussis, Tetanus Vaccination: Yes Review of Systems - Review of Systems Notes: Review of systems as below unless otherwise stated in HPI. CONSTITUTIONAL [No] fever, [No] chills. EYES [No] eye pain. ENT [No] URI symptoms, [No] sore throat, [No] ear pain. CARDIOVASCULAR [No] chest pain, [No] palpitations, [No] edema. RESPIRATORY [No] Cough, [No] SOB, [No] wheezing. GASTROINTESTINAL [No] abdominal pain, [No] nausea, [No] Diarrhea, [No] Vomiting, [No] constipation, [No] melena, [No] rectal bleeding. GENITOURINARY [No] dysuria, [No] urinary frequency, [No] hematuria, [No] urinary urgency, [No] vaginal discharge, [No] vaginal bleeding. MUSCULOSKELETAL [No] Back pain. Positive leg pain SKIN Positive rash. NEUROLOGIC [No] Headache, [No] recent seizures, [No] paralysis,[No] parathesias. ENDOCRINE [No] polyuria. HEMO/LYMPATIC [No] easy brusing PSYCHIATRIC [No] depression. Physical Exam - Vital signs Vitals: Temp Pulse Resp BP Pulse Ox 99.2 F 116 H 20 119/63 95 06/17/20 16:44 06/17/20 16:44 06/17/20 16:44 06/17/20 16:44 06/17/20 16:44 - Notes Notes: CONSTITUTIONAL [Vital signs reviewed, Patient appears somewhat uncomfortable, Alert and oriented X 3, Normal stature.] HEAD [Atraumatic, Normocephalic.] EYES [Eyes are normal to inspection, No discharge from eyes, Extraocular muscles intact, Sclera are normal, Conjunctiva are normal.] ENT [External ears normal to inspection, Nose examination normal, Mouth normal to inspection.] NECK [Normal ROM, No jugular venous distention, No meningeal signs, ] RESPIRATORY CHEST [Chest is nontender, Breath sounds normal, No respiratory distress.] CARDIOVASCULAR [RRR, No murmurs, Normal S1 S2, No rub, No gallop.] ABDOMEN [Abdomen is nontender, No pulsatile masses, No other masses, Bowel sounds normal, No distension, No peritoneal signs, No hernias.] BACK [There is no CVA Tenderness, There is no tenderness to palpation, Normal inspection.] UPPER EXTREMITY [Inspection normal, No cyanosis, No clubbing, No edema, LOWER EXTREMITY Patient has multiple areas of nonconfluent darkly erythematous nonblanching lesions present on her lower legs that are circumferential NEURO [No focal motor deficits, No focal sensory deficits, Speech normal.] SKIN See lower extremity exam] PSYCHIATRIC [flat affect. ] Course - Re-evaluation Re-evalutation: 06/18/20 00:11 Results of ED MSE discussed with patient. Recommendation for admission discussed with patient. Patient is agreeable to this. - Vital Signs Vital signs: Temp Pulse Resp BP Pulse Ox 99.2 F 116 H 20 119/63 95 06/17/20 16:44 06/17/20 16:44 06/17/20 16:44 06/17/20 16:44 06/17/20 16:44 - Laboratory Results Result Diagrams: 06/17/20 18:50 06/17/20 18:50 Laboratory Results Interpreted: 06/17/20 06/17/20 06/17/20 18:50 18:50 22:59 WBC 18.3 H RDW 16.8 H Lymph % (Auto) 8.4 L Absolute Neuts (auto) 15.1 H Seg Neutrophils % 83.0 H Sodium 134.9 L Est GFR (MDRD) Non-Af 54 L Glucose 149 H Alkaline Phosphatase 161 H Urine Protein 100 H Urine Ketones TRACE H Urine Blood LARGE H Urine Bilirubin SMALL H Urine Urobilinogen 4.0 H Leukocyte Esterase Rfl TRACE H Critical Laboratory Results Reviewed: Yes Attending or Supervising Physician who Reviewed Labs: MELVIN NORIEGA IV - White count 18.3, rapid Covid test was negative - Radiology Results Critical Radiology Results Reviewed: No Critical Results - Consults Dr. Jenkins Time consulted: 21:25 - Dr. Jenkins agreed to admit the patient but once a Covid swab done to determine what floor the patient goes to Reason for consultation: 06/17/20 21:58 Leukocytosis and vasculitis Discharge - Discharge Clinical Impression: Vasculitis Leukocytosis, unspecified Qualifiers: Leukocytosis type: unspecified Qualified Code(s): D72.829 - Elevated white blood cell count, unspecified Disposition: ADMITTED INPATIENT Admitting Provider: Renee Unit Admitted: Telemetry Referrals: CONSTANZA VALLEJO MD [Primary Care Provider] - Follow up as needed
[2020-06-17] MEDS ORDERED: HYDROCODONE/ACETAMINOPHEN 5-325 MG TABLET PO ONE (21:34)
[2020-06-17 23:16] LABS: APPEARANCE,URINE CLOUDY; BILIRUBIN,URINE SMALL (NEGATIVE); COLOR,URINE AMBER; GLUCOSE, URINE NEGATIVE (NEGATIVE); KETONES,URINE TRACE mg/dL (NEGATIVE); PROTEIN,URINE 100 mg/dL (NEGATIVE); URINE SPECIFIC GRAVITY 1.028
[2020-06-17 23:29] LABS: URINE AMPHETAMINES SCREEN NEGATIVE; URINE BARBITURATES SCREEN NEGATIVE; URINE BENZODIAZEPINES SCREEN NEGATIVE; URINE COCAINE SCREEN NEGATIVE; URINE MARIJUANA (THC) SCREEN NEGATIVE; URINE METHADONE SCREEN NEGATIVE; URINE PHENCYCLIDINE SCREEN NEGATIVE
[2020-06-18 01:51] LABS: URINE PROTEIN 50.5 mg/dL (<12)
[2020-06-18 01:53] LABS: PHOSPHORUS 4.4 mg/dL (2.5-4.5)
[2020-06-18] MEDS ORDERED: DOXYCYCLINE HYCLATE 100 MG TABLET PO ONE ×2 (02:00→03:44)
[2020-06-18 02:07] LABS: UR PRO/CREAT RATIO RESULT 0.1 mg/mg (0.0-0.2); URINE CREATININE 564.5 mg/dL (15-278)
[2020-06-18 02:25] LABS: INTERNATIONAL RATION (INR) 1.28; PROTHROMBIN TIME 16.2 SEC (11.4-15.4)
[2020-06-18 02:26] LABS: PARTIAL THROMBOPLASTIN TIME 30.6 SEC (23.5-35.8)
[2020-06-18 02:52] LABS: CREATINE KINASE MB < 0.22 ng/mL (<4.55); TROPONIN I < 0.012 ng/mL
[2020-06-18 03:01] LABS: C-REACTIVE PROTEIN 306.5 mg/L (<10.0)
[2020-06-18 03:04] LABS: FREE T4 (FREE THYROXINE) 1.39 ng/dL (0.78-2.19)
[2020-06-18 03:55] LABS: THYROID STIMULATING HORMONE 1.28 uIU/mL (0.47-4.68)
[2020-06-18 08:45] LABS: CREATINE KINASE MB < 0.22 ng/mL (<4.55); TROPONIN I < 0.012 ng/mL
[2020-06-18] MEDS: DOXYCYCLINE HYCLATE 100 MG TABLET PO SCH ×2 (10:11→21:52)
[2020-06-18] MEDS: HYDROCODONE/ACETAMINOPHEN 10-325 MG TABLET PO PRN ×2 (14:27→20:07)
[2020-06-18 15:23] LABS: CREATINE KINASE MB < 0.22 ng/mL (<4.55); TROPONIN I < 0.012 ng/mL
--- NOTE | 2020-06-18 16:53 | PDOC H&P ---
History of Present Illness Admission Date/PCP: 06/18/20 00:43 CONSTANZAGWENDOLYN VALLEJO History of Present Illness: SOLO LANGE is a 54 year old female, She has a history of obesity, she came to the emergency room for evaluation of 1 week history of progressive painful erythema of both legs extending from the ankle to the lower part of the thigh. The erythema is distributed randomly it is not confluent there are areas of nodules, it is not consistent with cellulitis, it looks like a primary skin disease or it could also represent a drug rash. She has a history of schizophrenia, she is supposedly on psychotropic drugs, history taking is also very challenging in this patient.The erythema is predominantly distributed in the lower extremities, the torso is not affected, the upper extremities are affected, on inspection of the feet, the sole of the feet is very scaly and dry Past Medical History Cardiac Medical History: Reports: Hyperlipidema, Hypertension GI Medical History: Reports: Gastroesophageal Reflux Disease Psychiatric Medical History: Reports: Depression, Schizoaffective Disorder Hematology: Reports: Anemia Past Surgical History Past Surgical History: Comment Only: Hysterectomy - ([facility]-unable to answer) Social History Smoking Status: Current Every Day Smoker Cigarettes Packs Per Day: 0.5 Electronic Cigarette use?: No Last Time Smoked: 06/17/2020 Frequency of Alcohol Use: None Hx Recreational Drug Use: No Drugs: None Hx Prescription Drug Abuse: No Family History Family History: Reviewed & Not Pertinent Parental Family History Reviewed: Yes Children Family History Reviewed: Yes Sibling(s) Family History Reviewed.: Yes Medication/Allergy Home Medications: Acyclovir [Zovirax 200 mg Capsule] 200 mg PO BID 09/19/15 Ergocalciferol (Vitamin D2) [Vitamin D2] 50,000 unit PO TUFR PRN 09/19/15 Amlodipine Besylate [Norvasc 10 mg Tablet] 10 mg PO DAILY #30 tablet 09/21/15 Hydrochlorothiazide 25 mg PO DAILY #30 tablet 09/21/15 Acetaminophen [Tylenol 325 mg Tablet] 650 mg PO Q4HP PRN 06/18/20 Aspirin [Ecotrin 81 mg EC Tablet] 81 mg PO DAILY 06/18/20 Cephalexin Monohydrate [Keflex 500 mg Capsule] 500 mg PO Q12 06/18/20 Citalopram Hydrobromide [Celexa 20 mg Tablet] 20 mg PO DAILY 06/18/20 Famotidine [Acid Controller] 40 mg PO QHS 06/18/20 Guaifenesin/D-Methorphan Hb [Robitussin-Dm Syrup 10 Ml Udcup] 10 ml PO Q4HP PRN 06/18/20 Lorazepam [Ativan 0.5 mg Tablet] 0.5 mg PO DAILYP PRN 06/18/20 Norgestimate-Ethinyl Estradiol [Tri-Sprintec] 1 each PO DAILY 06/18/20 Rosuvastatin Calcium [Crestor] 20 mg PO DAILY 06/18/20 Sennosides/Docusate Sodium [Senna Plus 8.6-50 mg Tablet] 2 each PO HSP PRN 06/18/20 Simethicone 125 mg PO QIDP PRN 06/18/20 Tramadol HCl [Ultram 50 mg Tablet] 50 mg PO Q6HP PRN 06/18/20 Allergies/Adverse Reactions: fluphenazine enanthate [From Prolixin] Allergy (Verified 07/10/17 11:05) fluphenazine HCl [From Prolixin] Allergy (Verified 07/10/17 11:05) Review of Systems Constitutional: ABSENT: chills, fever(s), headache(s), weight gain, weight loss Eyes: ABSENT: visual disturbances Ears: ABSENT: hearing changes Cardiovascular: ABSENT: chest pain, dyspnea on exertion, edema, orthropnea, palpitations Respiratory: ABSENT: cough, hemoptysis Gastrointestinal: ABSENT: abdominal pain, constipation, diarrhea, hematemesis, hematochezia, nausea, vomiting Genitourinary: ABSENT: dysuria, hematuria Musculoskeletal: ABSENT: joint swelling Integumentary: PRESENT: erythema Neurological: ABSENT: abnormal gait, abnormal speech, confusion, dizziness, focal weakness, syncope Psychiatric: ABSENT: anxiety, depression, homidical ideation, suicidal ideation Endocrine: ABSENT: cold intolerance, heat intolerance, menstrual abnormalities, polydipsia, polyuria Hematologic/Lymphatic: ABSENT: easy bleeding, easy bruising, lymphadenopathy Physical Exam Vital Signs: Temp Pulse Resp BP Pulse Ox 97.8 F 114 H 19 118/60 96 06/18/20 14:53 06/18/20 14:53 06/18/20 14:53 06/18/20 14:53 06/18/20 14:53 Intake & Output 0106/18/20 06/19/20 06:59 06:59 06:59 Intake Total 120 560 Output Total 400 400 Balance -280 160 Weight 116.2 kg General appearance: PRESENT: no acute distress Head exam: PRESENT: atraumatic, normocephalic Eye exam: PRESENT: PERRLA Ear exam: PRESENT: normal external ear exam Neck exam: PRESENT: full ROM Respiratory exam: PRESENT: clear to auscultation chelsea Cardiovascular exam: PRESENT: RRR, +S1, +S2 GI/Abdominal exam: PRESENT: normal bowel sounds, soft Rectal exam: PRESENT: deferred Neurological exam: PRESENT: alert, CN II-XII grossly intact Psychiatric exam: PRESENT: appropriate affect, normal mood Skin exam: PRESENT: dry, erythema, intact, warm Results Laboratory Results: 06/17/20 18:50 06/17/20 18:50 06/17/20 06/17/20 06/17/20 18:50 18:50 18:50 WBC 18.3 H RBC 4.22 Hgb 12.9 Hct 37.3 MCV 88 MCH 30.6 MCHC 34.6 RDW 16.8 H Plt Count 329 Seg Neutrophils % 83.0 H Sodium 134.9 L Potassium 3.8 Chloride 98 Carbon Dioxide 28 Anion Gap 9 BUN 16 Creatinine 1.06 Est GFR ( Amer) > 60 Glucose 149 H Calcium 9.5 Phosphorus 4.4 Magnesium 2.0 Total Bilirubin 0.6 AST 14 Alkaline Phosphatase 161 H C-Reactive Protein 306.5 H Total Protein 7.7 Albumin 3.6 Amylase 47 Lipase 55.9 TSH Free T4 Urine Color Urine Appearance Urine pH Ur Specific Bath Urine Protein Urine Glucose (UA) Urine Ketones Urine Blood Urine RBC (Auto) 06/17/20 06/17/20 18:50 22:59 WBC RBC Hgb Hct MCV MCH MCHC RDW Plt Count Seg Neutrophils % Sodium Potassium Chloride Carbon Dioxide Anion Gap BUN Creatinine Est GFR ( Amer) Glucose Calcium Phosphorus Magnesium Total Bilirubin AST Alkaline Phosphatase C-Reactive Protein Total Protein Albumin Amylase Lipase TSH 1.28 Free T4 1.39 Urine Color LAM Urine Appearance CLOUDY Urine pH 5.0 Ur Specific Bath 1.028 Urine Protein 100 H Urine Glucose (UA) NEGATIVE Urine Ketones TRACE H Urine Blood LARGE H Urine RBC (Auto) >182 06/18/20 06/18/20 06/18/20 02:02 02:02 07:30 Creatine Kinase 75 84 CK-MB (CK-2) < 0.22 Troponin I < 0.012 06/18/20 06/18/20 06/18/20 07:30 13:53 13:53 Creatine Kinase 77 CK-MB (CK-2) < 0.22 < 0.22 Troponin I < 0.012 < 0.012 Assessment & Plan - Diagnosis (1) Erythematous eczema Is this a current diagnosis for this admission?: Yes Plan: The ESR, CRP, are elevated suggesting inflammatory process, the differential diagnosis is long, there is associated leukocytosis, patient may need a skin biopsy for definitive diagnosis but she will be treated with intravenous Solu- Medrol cannot completely rule out infection of the feet, will start doxycycline (2) Morbid obesity due to excess calories Is this a current diagnosis for this admission?: Yes - Time Time Spent: Greater than 70 Minutes Medications reviewed and adjusted accordingly: Yes Anticipated Discharge Disposition: Home, Self Care Anticipated Discharge Timeframe: within 72 hours
[2020-06-18] MEDS ORDERED: METHYLPREDNISOLONE INJ 40 MG/1 ML SDV IV ONE (17:15)
[2020-06-19] MEDS: HYDROCODONE/ACETAMINOPHEN 10-325 MG TABLET PO PRN ×3 (02:26→17:10)
[2020-06-19] MEDS: METHYLPREDNISOLONE INJ 40 MG/1 ML SDV IV SCH ×3 (02:26→17:10)
[2020-06-19 06:06] LABS: HEMATOCRIT 34.5 % (36.0-47.0); HEMOGLOBIN 11.7 g/dL (12.0-15.5); MEAN CORPUSCULAR HGB CONC 33.9 g/dL (32.0-36.0); MEAN CORPUSCULAR VOLUME 89 fl (80-97); PLATELET COUNT 299 10^3/uL (150-450); RED BLOOD COUNT 3.89 10^6/uL (3.72-5.28); RED CELL DISTRIBUTION WIDTH 16.6 % (11.5-14.0); WHITE BLOOD COUNT 17.7 10^3/uL (4.0-10.5)
[2020-06-19 06:35] LABS: ALBUMIN 3.3 g/dL (3.5-5.0); ALKALINE PHOSPHATASE 139 U/L (38-126); ANION GAP 11 (5-19); ASPARTATE AMINO TRANSFERASE 13 U/L (14-36); BILIRUBIN,DIRECT 0.5 mg/dL (0.0-0.4); BILIRUBIN,TOTAL 0.5 mg/dL (0.2-1.3); BLOOD UREA NITROGEN 15 mg/dL (7-20); CALCIUM 9.5 mg/dL (8.4-10.2); CARBON DIOXIDE 25 mmol/L (22-30); CHLORIDE 101 mmol/L (98-107); GLUCOSE 216 mg/dL (75-110); POTASSIUM 4.3 mmol/L (3.6-5.0); TOTAL PROTEIN 7.3 g/dL (6.3-8.2)
[2020-06-19 07:21] LABS: ABSOLUTE LYMPHOCYTES# (MANUAL) 0.4 10^3/uL (0.5-4.7); ABSOLUTE MONOCYTES # (MANUAL) 0.2 10^3/uL (0.1-1.4); BASOPHILS % (MANUAL) 0 % (0-2); EOSINOPHILS % (MANUAL) 0 % (0-6); LYMPHOCYTES % (MANUAL) 2 % (13-45); MONOCYTES % (MANUAL) 1 % (3-13); SEGMENTED NEUTROPHILS % (MAN) 97 % (42-78); TOTAL CELLS COUNTED 100
[2020-06-19 07:23] LABS: ANISOCYTOSIS 1+; PLATELET COMMENT ADEQUATE; POLYCHROMASIA SLIGHT
[2020-06-19] MEDS: DOXYCYCLINE HYCLATE 100 MG TABLET PO SCH ×2 (09:10→22:34)
[2020-06-19] MEDS ORDERED: ACETAMINOPHEN 325 MG TABLET PO PRN (16:05)
[2020-06-19] MEDS ORDERED: LORAZEPAM 0.5 MG TABLET PO PRN (16:05)
[2020-06-19] MEDS ORDERED: (PENDING PHARMACY ID) (Rosuvastatin Calcium [Crestor] 20 MG Tablet) PO SCH (16:15)
--- NOTE | 2020-06-19 16:15 | PDOC PROGRESS REPORT ---
Subjective Date:: 06/19/20 Subjective:: Patient seen by the bedside, the erythema is improved, she feels much better, on further review of patient medication she apparently was prescribed cephalexin by a provider, most likely the rash in the extremity could be a drug rash, She has elevated white blood cell count, the differential diagnosis is predominantly neutrophils, it is not eosinophilic that is typically seen in dress syndrome. She will continue the Solu-Medrol for few more days because patient is showing good response to it, she has less pain. Reason For Visit: LEUKOCYTOSIS,UNSPECIFIED,VASCULITIS Physical Exam Vital Signs: Temp Pulse Resp BP Pulse Ox 99.2 F 90 18 154/80 H 97 06/19/20 11:47 06/19/20 11:47 06/19/20 11:47 06/19/20 11:47 06/19/20 11:47 Intake & Output 06/18/20 06/19/20 06/20/20 06:59 06:59 06:59 Intake Total 120 1360 Output Total 400 600 Balance -280 760 Weight 116.2 kg 123.5 kg General appearance: PRESENT: no acute distress Eye exam: PRESENT: PERRLA Respiratory exam: PRESENT: clear to auscultation chelsea Cardiovascular exam: PRESENT: +S1, +S2 GI/Abdominal exam: PRESENT: soft Neurological exam: PRESENT: alert, CN II-XII grossly intact Skin exam: PRESENT: erythema Results Laboratory Results: 06/19/20 05:21 06/19/20 05:21 06/19/20 06/19/20 05:21 05:21 WBC 17.7 H RBC 3.89 Hgb 11.7 L Hct 34.5 L MCV 89 MCH 30.0 MCHC 33.9 RDW 16.6 H Plt Count 299 Seg Neutrophils % Not Reportable Sodium 137.0 Potassium 4.3 Chloride 101 Carbon Dioxide 25 Anion Gap 11 BUN 15 Creatinine 0.72 Est GFR ( Amer) > 60 Glucose 216 H Calcium 9.5 Total Bilirubin 0.5 AST 13 L Alkaline Phosphatase 139 H Total Protein 7.3 Albumin 3.3 L 06/17/20 22:59 Clean Catch Midstream Urine Culture - Final Glennncia Sttheresartii 06/18/20 06/18/20 06/18/20 02:02 02:02 07:30 Creatine Kinase 75 84 CK-MB (CK-2) < 0.22 Troponin I < 0.012 06/18/20 06/18/20 06/18/20 07:30 13:53 13:53 Creatine Kinase 77 CK-MB (CK-2) < 0.22 < 0.22 Troponin I < 0.012 < 0.012 Assessment & Plan - Diagnosis (1) Erythematous eczema Is this a current diagnosis for this admission?: Yes Plan: Continue IV Solu-Medrol (2) Morbid obesity due to excess calories Is this a current diagnosis for this admission?: Yes - Time Time Spent with patient: 25-34 minutes Level of Care: MEDICAL Medications reviewed and adjusted accordingly: Yes Anticipated discharge: Home Anticipated DC Timeframe: within 72 hours - Inpatient Certification Based on my medical assessment, after consideration of the patient's comorbidities, presenting symptoms, or acuity I expect that the services needed warrant INPATIENT care.: Yes I certify that my determination is in accordance with my understanding of Medicare's requirements for reasonable and necessary INPATIENT services [42 CFR 412.3e].: Yes
[2020-06-19] MEDS: AMLODIPINE BESYLATE 10 MG TABLET PO SCH (17:09)
[2020-06-19] MEDS: ASPIRIN 81 MG TABLET, ENT COATED PO SCH (17:10)
[2020-06-19] MEDS: CITALOPRAM HYDROBROMIDE 20 MG TABLET PO SCH (17:10)
[2020-06-19] MEDS: HYDROCHLOROTHIAZIDE 25 MG TABLET PO SCH (17:10)
[2020-06-19] MEDS: TRAMADOL HCL 50 MG TABLET PO PRN (22:34)
[2020-06-20] MEDS: METHYLPREDNISOLONE INJ 40 MG/1 ML SDV IV SCH ×3 (04:46→22:24)
[2020-06-20 05:02] LABS: HEMATOCRIT 34.5 % (36.0-47.0); HEMOGLOBIN 11.5 g/dL (12.0-15.5); MEAN CORPUSCULAR HEMOGLOBIN 29.9 pg (27.0-33.4); MEAN CORPUSCULAR HGB CONC 33.4 g/dL (32.0-36.0); MEAN CORPUSCULAR VOLUME 89 fl (80-97); PLATELET COUNT 317 10^3/uL (150-450); RED BLOOD COUNT 3.87 10^6/uL (3.72-5.28); RED CELL DISTRIBUTION WIDTH 16.7 % (11.5-14.0); WHITE BLOOD COUNT 21.2 10^3/uL (4.0-10.5)
[2020-06-20 05:31] LABS: ABSOLUTE LYMPHOCYTES# (MANUAL) 1.1 10^3/uL (0.5-4.7); ABSOLUTE MONOCYTES # (MANUAL) 1.1 10^3/uL (0.1-1.4); BASOPHILS % (MANUAL) 0 % (0-2); EOSINOPHILS % (MANUAL) 0 % (0-6); LYMPHOCYTES % (MANUAL) 5 % (13-45); MONOCYTES % (MANUAL) 5 % (3-13); SEGMENTED NEUTROPHILS % (MAN) 90 % (42-78); TOTAL CELLS COUNTED 100
[2020-06-20 05:34] LABS: ANISOCYTOSIS 1+; HYPOCHROMASIA 1+; OVALOCYTES 1+; PLATELET COMMENT ADEQUATE; POIKILOCYTOSIS 1+; TEAR DROP CELLS 1+; TOXIC GRANULATION SLIGHT
[2020-06-20] MEDS: ASPIRIN 81 MG TABLET, ENT COATED PO SCH (09:35)
[2020-06-20] MEDS: DOCUSATE SODIUM 100 MG CAPSULE PO SCH ×2 (09:35→17:25)
[2020-06-20] MEDS: HYDROCHLOROTHIAZIDE 25 MG TABLET PO SCH (09:35)
[2020-06-20] MEDS: CITALOPRAM HYDROBROMIDE 20 MG TABLET PO SCH (09:35)
[2020-06-20] MEDS: AMLODIPINE BESYLATE 10 MG TABLET PO SCH (09:36)
[2020-06-20] MEDS: DOXYCYCLINE HYCLATE 100 MG TABLET PO SCH ×2 (09:37→22:24)
--- NOTE | 2020-06-20 11:09 | PDOC PROGRESS REPORT ---
Subjective Date:: 06/20/20 Subjective:: Nursing staff reported no bowel movement for couple of days. PO intake remain po or . No nausea, vomiting, or abdominal pain. No chest pain or difficulty with breathing. Patient narrated use of mattress box from shed and possible exposure to mites and insects prior to development of her presenting symptoms. No fever or chills. Reason For Visit: LEUKOCYTOSIS,UNSPECIFIED,VASCULITIS Physical Exam Vital Signs: Temp Pulse Resp BP Pulse Ox 98.5 F 85 20 144/87 H 98 06/20/20 10:00 06/20/20 07:37 06/20/20 07:37 06/20/20 07:37 06/20/20 07:37 Intake & Output 06/19/20 06/20/20 06/21/20 06:59 06:59 06:59 Intake Total 1360 850 720 Output Total 600 Balance 760 850 720 Weight 123.5 kg 122.8 kg General appearance: PRESENT: morbidly obese Head exam: PRESENT: atraumatic, normocephalic Eye exam: PRESENT: conjunctiva pink, scleral icterus Mouth exam: PRESENT: moist Respiratory exam: PRESENT: clear to auscultation chelsea Cardiovascular exam: PRESENT: RRR, +S1, +S2. ABSENT: diastolic murmur, rubs, systolic murmur Vascular exam: ABSENT: pallor GI/Abdominal exam: PRESENT: normal bowel sounds, soft. ABSENT: tenderness Extremities exam: ABSENT: pedal edema Neurological exam: PRESENT: alert, awake, oriented to person, oriented to place, oriented to time, oriented to situation, CN II-XII grossly intact, motor sensory deficit Psychiatric exam: ABSENT: agitated Skin exam: PRESENT: dry, erythema, petechiae, rash - on lower extremities, warm Results Laboratory Results: 06/20/20 04:20 06/19/20 05:21 06/20/20 04:20 WBC 21.2 H RBC 3.87 Hgb 11.5 L Hct 34.5 L MCV 89 MCH 29.9 MCHC 33.4 RDW 16.7 H Plt Count 317 Seg Neutrophils % Not Reportable 06/17/20 22:59 Clean Catch Midstream Urine Culture - Final Providencia Stuartii 06/18/20 06/18/20 06/18/20 02:02 02:02 07:30 Creatine Kinase 75 84 CK-MB (CK-2) < 0.22 Troponin I < 0.012 06/18/20 06/18/20 06/18/20 07:30 13:53 13:53 Creatine Kinase 77 CK-MB (CK-2) < 0.22 < 0.22 Troponin I < 0.012 < 0.012 Assessment & Plan - Diagnosis (1) Leukocytosis, unspecified Qualifiers: Leukocytosis type: unspecified Qualified Code(s): D72.829 - Elevated white blood cell count, unspecified Is this a current diagnosis for this admission?: Yes Plan: Continue current antibiotic therapy. (2) Erythematous eczema Is this a current diagnosis for this admission?: Yes Plan: Decrease IV Solu Medrol to 40 mg q12 hours. (3) HTN (hypertension) Qualifiers: Hypertension type: essential hypertension Qualified Code(s): I10 - Essential (primary) hypertension Is this a current diagnosis for this admission?: Yes Plan: Continue current medication management. (4) Constipation Is this a current diagnosis for this admission?: Yes Plan: Start on Colace 100 mg po bid. Encourage increase of fiber in her diet and adequate water intake. (5) HLD (hyperlipidemia) Is this a current diagnosis for this admission?: Yes Plan: Continue current medication management. (6) Morbid obesity due to excess calories Is this a current diagnosis for this admission?: Yes Plan: Maintain on supportive care and restricted caloric intake. - Time Time Spent with patient: 25-34 minutes Level of Care: MEDICAL Medications reviewed and adjusted accordingly: Yes Anticipated discharge: Home with Homehealth Anticipated DC Timeframe: within 72 hours - Inpatient Certification Based on my medical assessment, after consideration of the patient's comorbidities, presenting symptoms, or acuity I expect that the services needed warrant INPATIENT care.: Yes I certify that my determination is in accordance with my understanding of Medicare's requirements for reasonable and necessary INPATIENT services [42 CFR 412.3e].: Yes Medical Necessity: Significant Comorbidiites Make Outpatient Treatment Too R isky, Need Close Monitoring Due to Risk of Patient Decompensation, Risk of Complication if Not Cared For in Hospital, Risk of Diagnosis Which Will Require Inpatient Eval/Care/Monitoring Post Hospital 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
[2020-06-20 15:37] LABS: ANTICHROMATIN AB <0.2 AI (0.0-0.9); CENTROMERE B AB <0.2 AI (0.0-0.9); JO-1 ANTIBODY (ANACOMP) <0.2 AI (0.0-0.9); SJOGREN'S ANTI-SS-B AB <0.2 AI (0.0-0.9); SJOGREN'S SS-A ANTIBODY <0.2 AI (0.0-0.9)
[2020-06-20 16:14] LABS: DNA DOUBLE STRAND ANTIBODY ANA <1 IU/mL (0-9)
[2020-06-20 16:37] LABS: ANTIMYELOPEROXIDASE (MPO) AB <9.0 U/mL (0.0-9.0); CYTOPLASMIC (C-ANCA) <1:20 titer (Neg:<1:20)
[2020-06-20] MEDS: ATORVASTATIN CALCIUM 40 MG TABLET PO SCH (22:24)
[2020-06-20] MEDS: TRAMADOL HCL 50 MG TABLET PO PRN (22:24)
[2020-06-21 05:22] LABS: HEMATOCRIT 36.9 % (36.0-47.0); HEMOGLOBIN 12.4 g/dL (12.0-15.5); MEAN CORPUSCULAR HGB CONC 33.8 g/dL (32.0-36.0); MEAN CORPUSCULAR VOLUME 89 fl (80-97); PLATELET COUNT 351 10^3/uL (150-450); RED BLOOD COUNT 4.15 10^6/uL (3.72-5.28); RED CELL DISTRIBUTION WIDTH 16.6 % (11.5-14.0); WHITE BLOOD COUNT 20.7 10^3/uL (4.0-10.5)
[2020-06-21 06:03] LABS: ABSOLUTE LYMPHOCYTES# (MANUAL) 1.9 10^3/uL (0.5-4.7); ABSOLUTE MONOCYTES # (MANUAL) 0.8 10^3/uL (0.1-1.4); BASOPHILS % (MANUAL) 0 % (0-2); EOSINOPHILS % (MANUAL) 0 % (0-6); LYMPHOCYTES % (MANUAL) 9 % (13-45); MONOCYTES % (MANUAL) 4 % (3-13); SEGMENTED NEUTROPHILS % (MAN) 87 % (42-78); TOTAL CELLS COUNTED 100
[2020-06-21 06:04] LABS: OVALOCYTES SLIGHT; POIKILOCYTOSIS SLIGHT; POLYCHROMASIA SLIGHT; TOXIC GRANULATION 1+
[2020-06-21 06:05] LABS: ANISOCYTOSIS 1+; PLATELET COMMENT ADEQUATE
[2020-06-21 07:18] LABS: ATYPICAL PANCA <1:20 titer (Neg:<1:20)
[2020-06-21] MEDS: DOCUSATE SODIUM 100 MG CAPSULE PO SCH ×2 (11:07→17:15)
[2020-06-21] MEDS: DOXYCYCLINE HYCLATE 100 MG TABLET PO SCH (11:08)
[2020-06-21] MEDS: HYDROCHLOROTHIAZIDE 25 MG TABLET PO SCH (11:08)
[2020-06-21] MEDS: METHYLPREDNISOLONE INJ 40 MG/1 ML SDV IV SCH (11:08)
[2020-06-21] MEDS: ASPIRIN 81 MG TABLET, ENT COATED PO SCH (11:08)
[2020-06-21] MEDS: CITALOPRAM HYDROBROMIDE 20 MG TABLET PO SCH (11:08)
[2020-06-21] MEDS: AMLODIPINE BESYLATE 10 MG TABLET PO SCH (11:09)
[2020-06-21 16:37] LABS: A/G RATIO. 0.7 (0.7-1.7); ALBUMIN 3 2.7 g/dL (2.9-4.4); ALPHA-1-GLOBULIN 0.6 g/dL (0.0-0.4); BETA GLOBULIN 1.3 g/dL (0.7-1.3); GAMMA GLOBULINS 1.3 g/dL (0.4-1.8); IMMUNOGLOBULIN A 282 mg/dL (87-352); IMMUNOGLOBULIN G 1474 mg/dL (586-1602); IMMUNOGLOBULIN M 31 mg/dL (26-217); MONOCLONAL-SPIKE Not Observed g/dL (Not Observ); PROTEIN TOTAL SERUM 6.9 g/dL (6.0-8.5)
--- NOTE | 2020-06-21 18:28 | PDOC PROGRESS REPORT ---
Subjective Date:: 06/21/20 Subjective:: No nausea, vomiting, or abdominal pain. No chest pain or difficulty with breathing. Patient narrated use of mattress box from shed and possible exposure to mites and insects prior to development of her presenting symptoms. No fever or chills. Reason For Visit: LEUKOCYTOSIS,UNSPECIFIED,VASCULITIS Physical Exam Vital Signs: Temp Pulse Resp BP Pulse Ox 98.9 F 94 15 144/85 H 95 06/21/20 16:03 06/21/20 16:03 06/21/20 16:03 06/21/20 16:03 06/21/20 16:03 Intake & Output 06/20/20 06/21/20 06/22/20 06:59 06:59 06:59 Intake Total 850 1870 1200 Balance 850 1870 1200 Weight 122.8 kg 122.8 kg Physical Exam: General appearance: PRESENT: morbidly obese Head exam: PRESENT: atraumatic, normocephalic Eye exam: PRESENT: conjunctiva pink. ABSENT: pallor, sclera icterus Mouth exam: PRESENT: moist Respiratory exam: PRESENT: clear to auscultation [place] Cardiovascular exam: PRESENT: RRR, +S1, +S2. ABSENT: diastolic murmur, rubs, s ystolic murmur GI/Abdominal exam: PRESENT: normal bowel sounds, soft. ABSENT: tenderness Extremities exam: ABSENT: pedal edema Neurological exam: PRESENT: alert, awake, oriented to person, oriented to place, oriented to time, oriented to situation, CN II-XII grossly intact, motor sensory deficit Psychiatric exam: ABSENT: agitated Skin exam: PRESENT: dry, erythema, petechia, rash - on lower extremities, warm Results Laboratory Results: 06/21/20 04:37 06/19/20 05:21 06/21/20 04:37 WBC 20.7 H RBC 4.15 Hgb 12.4 Hct 36.9 MCV 89 MCH 30.0 MCHC 33.8 RDW 16.6 H Plt Count 351 Seg Neutrophils % Not Reportable 06/18/20 06/18/20 06/18/20 02:02 02:02 07:30 Creatine Kinase 75 84 CK-MB (CK-2) < 0.22 Troponin I < 0.012 06/18/20 06/18/20 06/18/20 07:30 13:53 13:53 Creatine Kinase 77 CK-MB (CK-2) < 0.22 < 0.22 Troponin I < 0.012 < 0.012 Assessment & Plan - Diagnosis (1) UTI (urinary tract infection) Qualifiers: Urinary tract infection type: acute cystitis Hematuria presence: with hematuria Qualified Code(s): N30.01 - Acute cystitis with hematuria Is this a current diagnosis for this admission?: Yes Plan: D/C Vibramycin. Start on IV Ceftriaxone coverage. Obtain CBC with diff in AM. (2) Leukocytosis, unspecified Qualifiers: Leukocytosis type: unspecified Qualified Code(s): D72.829 - Elevated white blood cell count, unspecified Is this a current diagnosis for this admission?: Yes (3) Erythematous eczema Is this a current diagnosis for this admission?: Yes (4) HTN (hypertension) Qualifiers: Hypertension type: essential hypertension Qualified Code(s): I10 - Essent ial (primary) hypertension Is this a current diagnosis for this admission?: Yes (5) Constipation Is this a current diagnosis for this admission?: Yes (6) HLD (hyperlipidemia) Is this a current diagnosis for this admission?: Yes (7) Morbid obesity due to excess calories Is this a current diagnosis for this admission?: Yes - Time Time Spent with patient: 25-34 minutes Level of Care: MEDICAL Medications reviewed and adjusted accordingly: Yes Anticipated discharge: Home with Homehealth Anticipated DC Timeframe: within 72 hours - Inpatient Certification Based on my medical assessment, after consideration of the patient's comorbidities, presenting symptoms, or acuity I expect that the services needed warrant INPATIENT care.: Yes I certify that my determination is in accordance with my understanding of Medicare's requirements for reasonable and necessary INPATIENT services [42 CFR 412.3e].: Yes Medical Necessity: Significant Comorbidiites Make Outpatient Treatment Too Risky, Need Close Monitoring Due to Risk of Patient Decompensation, Risk of Complication if Not Cared For in Hospital, Risk of Diagnosis Which Will Require Inpatient Eval/Care/Monitoring Post Hospital 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 Start on Prednisone 10 mg po bid with intent to taper off slowly. D/C Vibramycin. Start on IV Levofloxacin 500 mg daily. Maintain on all other current medication management.
[2020-06-21] MEDS: PREDNISONE 10 MG TABLET PO SCH (23:02)
[2020-06-21] MEDS: ATORVASTATIN CALCIUM 40 MG TABLET PO SCH (23:03)
[2020-06-21] MEDS: TRAMADOL HCL 50 MG TABLET PO PRN (23:03)
[2020-06-21] MEDS: CEFTRIAXONE 1 GM/D5W RTU 1 GM/50 ML RTUPB IV SCH (23:25)
[2020-06-22 07:45] LABS: ROCKY MTN SPOTTED FEV IGG EIA Positive (Negative); ROCKY MTN SPOTTED FEV IGG IFA <1:64 (Neg <1:64)
[2020-06-22] MEDS: CITALOPRAM HYDROBROMIDE 20 MG TABLET PO SCH (09:54)
[2020-06-22] MEDS: PREDNISONE 10 MG TABLET PO SCH ×2 (09:54→21:42)
[2020-06-22] MEDS: AMLODIPINE BESYLATE 10 MG TABLET PO SCH (09:54)
[2020-06-22] MEDS: ASPIRIN 81 MG TABLET, ENT COATED PO SCH (09:54)
[2020-06-22] MEDS: HYDROCHLOROTHIAZIDE 25 MG TABLET PO SCH (09:54)
[2020-06-22] MEDS: DOCUSATE SODIUM 100 MG CAPSULE PO SCH ×2 (09:55→17:47)
[2020-06-22] MEDS: CEFTRIAXONE 1 GM/D5W RTU 1 GM/50 ML RTUPB IV SCH (17:45)
[2020-06-22] MEDS: ATORVASTATIN CALCIUM 40 MG TABLET PO SCH (21:42)
--- NOTE | 2020-06-22 21:43 | PDOC PROGRESS REPORT ---
Subjective Date:: 06/22/20 Subjective:: Patient reported recurrence of her leg pain so far today but not as intense. No chest pain or difficulty with breathing. No abdominal pain, nausea, or vomiting. No fever or chills. Reason For Visit: LEUKOCYTOSIS,UNSPECIFIED,VASCULITIS Physical Exam Vital Signs: Temp Pulse Resp BP Pulse Ox 99.0 F 83 16 120/69 93 06/22/20 11:13 06/22/20 11:13 06/22/20 11:13 06/22/20 11:13 06/22/20 11:13 Intake & Output 06/21/20 06/22/20 06/23/20 06:59 06:59 06:59 Intake Total 1870 3237 240 Balance 1870 3237 240 Weight 122.8 kg 122.8 kg Physical Exam: General appearance: PRESENT: morbidly obese Head exam: PRESENT: atraumatic, normocephalic Eye exam: PRESENT: conjunctiva pink. ABSENT: pallor, sclera icterus Mouth exam: PRESENT: moist Respiratory exam: PRESENT: clear to auscultation [place] Cardiovascular exam: PRESENT: RRR, +S1, +S2. ABSENT: diastolic murmur, rubs, systolic murmur GI/Abdominal exam: PRESENT: normal bowel sounds, soft. ABSENT: tenderness Extremities exam: PRESENT: Expressed tenderness to palpation of her legs region wit rash. ABSENT: pedal edema Neurological exam: PRESENT: alert, awake, oriented to person, oriented to place, oriented to time, oriented to situation, CN II-XII grossly intact, motor sensory deficit Psychiatric exam: ABSENT: agitated Skin exam: PRESENT: dry, resolving erythema, petechia, rash - on lower extremities, warm Results Laboratory Results: 06/21/20 04:37 06/19/20 05:21 06/18/20 02:02 Total Protein 6.9 06/18/20 06/18/20 06/18/20 02:02 02:02 07:30 Creatine Kinase 75 84 CK-MB (CK-2) < 0.22 Troponin I < 0.012 06/18/20 06/18/20 06/18/20 07:30 13:53 13:53 Creatine Kinase 77 CK-MB (CK-2) < 0.22 < 0.22 Troponin I < 0.012 < 0.012 Assessment & Plan - Diagnosis (1) UTI (urinary tract infection) Qualifiers: Urinary tract infection type: acute cystitis Hematuria presence: with hematuria Qualified Code(s): N30.01 - Acute cystitis with hematuria Is this a current diagnosis for this admission?: Yes (2) Leukocytosis, unspecified Qualifiers: Leukocytosis type: unspecified Qualified Code(s): D72.829 - Elevated white blood cell count, unspecified Is this a current diagnosis for this admission?: Yes (3) Erythematous eczema Is this a current diagnosis for this admission?: Yes (4) HTN (hypertension) Qualifiers: Hypertension type: essential hypertension Qualified Code(s): I10 - Essential (primary) hypertension Is this a current diagnosis for this admission?: Yes (5) Constipation Is this a current diagnosis for this admission?: Yes (6) HLD (hyperlipidemia) Is this a current diagnosis for this admission?: Yes (7) Morbid obesity due to excess calories Is this a current diagnosis for this admission?: Yes - Time Time Spent with patient: 25-34 minutes Level of Care: MEDICAL Medications reviewed and adjusted accordingly: Yes Anticipated discharge: Home with Homehealth Anticipated DC Timeframe: within 72 hours - Inpatient Certification Based on my medical assessment, after consideration of the patient's comorbidities, presenting symptoms, or acuity I expect that the services needed warrant INPATIENT care.: Yes I certify that my determination is in accordance with my understanding of Medicare's requirements for reasonable and necessary INPATIENT services [42 CFR 412.3e].: Yes Medical Necessity: Significant Comorbidiites Make Outpatient Treatment Too Risky, Need Close Monitoring Due to Risk of Patient Decompensation, Need For IV Fluids, Need for IV Antibiotics, Risk of Complication if Not Cared For in Hospital, Risk of Diagnosis Which Will Require Inpatient Eval/Care/Monitoring Post Hospital Care: D/C Supervisor Channel Process Documentation - Plan Summary Plan Summary: Continue current medication management. Obtain PT evaluation and management. Obtain CK, CKMB, Troponin, CBC with diff and CMP in AM.
[2020-06-23 06:56] LABS: HEMATOCRIT 38.7 % (36.0-47.0); HEMOGLOBIN 12.9 g/dL (12.0-15.5); MEAN CORPUSCULAR HEMOGLOBIN 29.4 pg (27.0-33.4); MEAN CORPUSCULAR HGB CONC 33.2 g/dL (32.0-36.0); MEAN CORPUSCULAR VOLUME 89 fl (80-97); PLATELET COUNT 359 10^3/uL (150-450); RED BLOOD COUNT 4.37 10^6/uL (3.72-5.28); RED CELL DISTRIBUTION WIDTH 16.7 % (11.5-14.0)
[2020-06-23 06:59] LABS: ALBUMIN 3.3 g/dL (3.5-5.0); ALKALINE PHOSPHATASE 119 U/L (38-126); ANION GAP 9 (5-19); ASPARTATE AMINO TRANSFERASE 13 U/L (14-36); BILIRUBIN,DIRECT 0.4 mg/dL (0.0-0.4); BILIRUBIN,TOTAL 0.7 mg/dL (0.2-1.3); BLOOD UREA NITROGEN 29 mg/dL (7-20); CALCIUM 9.4 mg/dL (8.4-10.2); CARBON DIOXIDE 30 mmol/L (22-30); CHLORIDE 99 mmol/L (98-107); CREATINE KINASE 26 U/L (30-135); GLUCOSE 141 mg/dL (75-110); POTASSIUM 4.6 mmol/L (3.6-5.0)
[2020-06-23 07:06] LABS: CREATINE KINASE MB < 0.22 ng/mL (<4.55); TROPONIN I < 0.012 ng/mL
[2020-06-23 08:31] LABS: ABSOLUTE LYMPHOCYTES# (MANUAL) 3.8 10^3/uL (0.5-4.7); ABSOLUTE MONOCYTES # (MANUAL) 2.2 10^3/uL (0.1-1.4); BASOPHILS % (MANUAL) 0 % (0-2); EOSINOPHILS % (MANUAL) 0 % (0-6); LYMPHOCYTES % (MANUAL) 16 % (13-45); MONOCYTES % (MANUAL) 9 % (3-13); SEGMENTED NEUTROPHILS % (MAN) 75 % (42-78); TOTAL CELLS COUNTED 100
[2020-06-23 08:32] LABS: ANISOCYTOSIS 1+; PLATELET COMMENT ADEQUATE; POLYCHROMASIA SLIGHT; TARGET CELLS SLIGHT
[2020-06-23] MEDS: HYDROCHLOROTHIAZIDE 25 MG TABLET PO SCH (10:56)
[2020-06-23] MEDS: ASPIRIN 81 MG TABLET, ENT COATED PO SCH (10:56)
[2020-06-23] MEDS: AMLODIPINE BESYLATE 10 MG TABLET PO SCH (10:56)
[2020-06-23] MEDS: CITALOPRAM HYDROBROMIDE 20 MG TABLET PO SCH (10:56)
[2020-06-23] MEDS: DOCUSATE SODIUM 100 MG CAPSULE PO SCH ×2 (10:56→18:17)
[2020-06-23] MEDS: PREDNISONE 10 MG TABLET PO SCH (11:01)
[2020-06-23] MEDS: CEFTRIAXONE 1 GM/D5W RTU 1 GM/50 ML RTUPB IV SCH (18:18)
--- NOTE | 2020-06-23 18:56 | PDOC PROGRESS REPORT ---
Subjective Date:: 06/23/20 Subjective:: Patient denied chest pain or difficulty with breathing. Moving her bowel adequately. No abdominal pain, nausea, or vomiting. No fever or chills. Reason For Visit: LEUKOCYTOSIS,UNSPECIFIED,VASCULITIS Physical Exam Vital Signs: Temp Pulse Resp BP Pulse Ox 98.3 F 103 H 18 109/74 100 06/23/20 16:00 06/23/20 16:00 06/23/20 16:00 06/23/20 16:00 06/23/20 16:00 Intake & Output 06/22/20 06/23/20 06/24/20 06:59 06:59 06:59 Intake Total 3237 1300 964 Balance 3237 1300 964 Weight 122.8 kg 122.8 kg Physical Exam: General appearance: PRESENT: morbidly obese Head exam: PRESENT: atraumatic, normocephalic Eye exam: PRESENT: conjunctiva pink. ABSENT: pallor, sclera icterus Mouth exam: PRESENT: moist Respiratory exam: PRESENT: clear to auscultation [place] Cardiovascular exam: PRESENT: RRR, +S1, +S2. ABSENT: diastolic murmur, rubs, systolic murmur GI/Abdominal exam: PRESENT: normal bowel sounds, soft. ABSENT: tenderness Extremities exam: PRESENT: Expressed tenderness to palpation of her legs region wit rash. ABSENT: pedal edema Neurological exam: PRESENT: alert, awake, oriented to person, oriented to place, oriented to time, oriented to situation, CN II-XII grossly intact, motor sensory deficit Psychiatric exam: ABSENT: agitated Skin exam: PRESENT: dry, resolving erythema, petechia, rash - on lower extremities, warm Results Laboratory Results: 06/23/20 05:44 06/23/20 05:44 06/23/20 06/23/20 05:44 05:44 WBC 24.0 H RBC 4.37 Hgb 12.9 Hct 38.7 MCV 89 MCH 29.4 MCHC 33.2 RDW 16.7 H Plt Count 359 Seg Neutrophils % Not Reportable Sodium 138.3 Potassium 4.6 Chloride 99 Carbon Dioxide 30 Anion Gap 9 BUN 29 H Creatinine 0.77 Est GFR ( Amer) > 60 Glucose 141 H Calcium 9.4 Total Bilirubin 0.7 AST 13 L Alkaline Phosphatase 119 Total Protein 7.0 Albumin 3.3 L 06/17/20 18:50 Blood Blood Culture - Final NO GROWTH IN 5 DAYS 06/17/20 22:01 Blood Blood Culture - Final NO GROWTH IN 5 DAYS 06/18/20 06/18/20 06/18/20 02:02 02:02 07:30 Creatine Kinase 75 84 CK-MB (CK-2) < 0.22 Troponin I < 0.012 06/18/20 06/18/20 06/18/20 07:30 13:53 13:53 Creatine Kinase 77 CK-MB (CK-2) < 0.22 < 0.22 Troponin I < 0.012 < 0.012 06/23/20 06/23/20 05:44 05:44 Creatine Kinase 26 L CK-MB (CK-2) < 0.22 Troponin I < 0.012 Assessment & Plan - Diagnosis (1) UTI (urinary tract infection) Qualifiers: Urinary tract infection type: acute cystitis Hematuria presence: with hematuria Qualified Code(s): N30.01 - Acute cystitis with hematuria Is this a current diagnosis for this admission?: Yes (2) Leukocytosis, unspecified Qualifiers: Leukocytosis type: unspecified Qualified Code(s): D72.829 - Elevated white blood cell count, unspecified Is this a current diagnosis for this admission?: Yes (3) Erythematous eczema Is this a current diagnosis for this admission?: Yes (4) HTN (hypertension) Qualifiers: Hypertension type: essential hypertension Qualified Code(s): I10 - Essenti al (primary) hypertension Is this a current diagnosis for this admission?: Yes (5) Constipation Is this a current diagnosis for this admission?: Yes (6) HLD (hyperlipidemia) Is this a current diagnosis for this admission?: Yes (7) Morbid obesity due to excess calories Is this a current diagnosis for this admission?: Yes - Time Time Spent with patient: 25-34 minutes Level of Care: MEDICAL Medications reviewed and adjusted accordingly: Yes Anticipated discharge: Home Anticipated DC Timeframe: within 48 hours - Inpatient Certification Based on my medical assessment, after consideration of the patient's comorbidities, presenting symptoms, or acuity I expect that the services needed warrant INPATIENT care.: Yes I certify that my determination is in accordance with my understanding of Medicare's requirements for reasonable and necessary INPATIENT services [42 CFR 412.3e].: Yes Medical Necessity: Significant Comorbidiites Make Outpatient Treatment Too Risky, Need Close Monitoring Due to Risk of Patient Decompensation, Need For IV Fluids, Need for IV Antibiotics, Risk of Complication if Not Cared For in [facility], Risk of Diagnosis Which Will Require Inpatient Eval/Care/Monitoring Post Hospital 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 Maintain on all other current medication management.
[2020-06-23] MEDS: ATORVASTATIN CALCIUM 40 MG TABLET PO SCH (21:44)
[2020-06-24] MEDS: HYDROCHLOROTHIAZIDE 25 MG TABLET PO SCH (09:20)
[2020-06-24] MEDS: DOCUSATE SODIUM 100 MG CAPSULE PO SCH (09:20)
[2020-06-24] MEDS: AMLODIPINE BESYLATE 10 MG TABLET PO SCH (09:20)
[2020-06-24] MEDS: ASPIRIN 81 MG TABLET, ENT COATED PO SCH (09:20)
[2020-06-24] MEDS: CITALOPRAM HYDROBROMIDE 20 MG TABLET PO SCH (09:20)
[2020-06-24] MEDS ORDERED: PREDNISONE 5 MG TABLET PO SCH (10:00)
[2020-06-24] MEDS ORDERED: NORMAL SALINE 1000 ML 1,000 ML IV PRN (14:49)
--- NOTE | 2020-06-24 15:28 | PDOC DISCHARGE SUMMARY ---
Impression - Admit/DC Date/PCP Admission Date/Primary Care Provider: 06/18/20 00:43 CONSTANZA VALLEJO Discharge Date: 06/24/20 - Discharge Diagnosis (1) UTI (urinary tract infection) Is this a current diagnosis for this admission?: Yes (2) Leukocytosis, unspecified Is this a current diagnosis for this admission?: Yes (3) Erythematous eczema Is this a current diagnosis for this admission?: Yes (4) HTN (hypertension) Is this a current diagnosis for this admission?: Yes (5) Constipation Is this a current diagnosis for this admission?: Yes (6) HLD (hyperlipidemia) Is this a current diagnosis for this admission?: Yes (7) Morbid obesity due to excess calories Is this a current diagnosis for this admission?: Yes - Assessment Summary: Patient was admitted or sudden onset erythematous petechia rash on her legs and feet with concern fr possible [place] spotted fever. She was started on IV Doxycycline therapy and Methylprednisone. Her serology evaluation was did not conform with acute [place] spotted fever. Her urine culture did grew Providencia Stuartii. Her antibiotic was adequately adjusted and she had sufficient dose for appropriate therapy. She is currently on tapering dose of Prednisone. She will be discharged home today and follow up in the office as instructed. - Additional Information Resuscitation Status: Full Code Discharge Diet: Cardiac Discharge Activity: Activity As Tolerated Referrals: CONSTANZA VALLEJO MD [Primary Care Provider] - 07/05/20 10:00 am Prescriptions: Docusate Sodium [Colace 100 mg Capsule] 100 mg PO BID #60 capsule Prednisone [Deltasone 5 mg Tablet] 5 mg PO ASDIR PRN #15 tablet PRN Reason: Home Medications: Acyclovir [Zovirax 200 mg Capsule] 200 mg PO BID 09/19/15 Ergocalciferol (Vitamin D2) [Vitamin D2] 50,000 unit PO TUFR PRN 09/19/15 Amlodipine Besylate [Norvasc 10 mg Tablet] 10 mg PO DAILY #30 tablet 09/21/15 Hydrochlorothiazide 25 mg PO DAILY #30 tablet 09/21/15 Acetaminophen [Tylenol 325 mg Tablet] 650 mg PO Q4HP PRN 06/18/20 Aspirin [Ecotrin 81 mg EC Tablet] 81 mg PO DAILY 06/18/20 Cephalexin Monohydrate [Keflex 500 mg Capsule] 500 mg PO Q12 06/18/20 Citalopram Hydrobromide [Celexa 20 mg Tablet] 20 mg PO DAILY 06/18/20 Famotidine [Acid Controller] 40 mg PO QHS 06/18/20 Guaifenesin/D-Methorphan Hb [Robitussin-Dm Syrup 10 ml Udcup] 10 ml PO Q4HP PRN 06/18/20 Lorazepam [Ativan 0.5 mg Tablet] 0.5 mg PO DAILYP PRN 06/18/20 Norgestimate-Ethinyl Estradiol [Tri-Sprintec Tablet] 1 each PO DAILY 06/18/20 Rosuvastatin Calcium [Crestor] 20 mg PO DAILY 06/18/20 Sennosides/Docusate Sodium [Senna Plus 8.6-50 mg Tablet] 2 each PO HSP PRN 06/18/20 Simethicone 125 mg PO QIDP PRN 06/18/20 Tramadol HCl [Ultram 50 mg Tablet] 50 mg PO Q6HP PRN 06/18/20 Docusate Sodium [Colace 100 mg Capsule] 100 mg PO BID #60 capsule 06/24/20 Prednisone [Deltasone 5 mg Tablet] 5 mg PO ASDIR PRN #15 tablet 06/24/20 History of Present Illiness History of Present Illness: SOLO LANGE is a 54 year old female, She has a history of obesity, she came to the emergency room for evaluation of 1 week history of progressive painful erythema of both legs extending from the ankle to the lower part of the thigh. The erythema is distributed randomly it is not confluent there are areas of nodules, it is not consistent with cellulitis, it looks like a primary skin disease or it could also represent a drug rash. She has a history of schizophrenia, she is supposedly on psychotropic drugs, history taking is also very challenging in this patient.The erythema is predominantly distributed in the lower extremities, the torso is not affected, the upper extremities are affected, on inspection of the feet, the sole of the feet is very scaly and dry Hospital Course Hospital Course: Patient was admitted or sudden onset erythematous petechia rash on her legs and feet with concern fr possible [place] spotted fever. She was started on IV Doxycycline therapy and Methylprednisone. Her serology evaluation was did not conform with acute [place] spotted fever. Her urine culture did grew P rovidencia Stuartii. Her antibiotic was adequately adjusted and she had sufficient dose for appropriate therapy. She is currently on tapering dose of Prednisone. She will be discharged home today and follow up in the office as instructed. Physical Exam Vital Signs: Temp Pulse Resp BP Pulse Ox 99.3 F 118 H 16 92/67 L 96 06/24/20 08:35 06/24/20 08:01 06/24/20 08:01 06/24/20 08:01 06/24/20 08:01 Intake & Output 06/23/20 06/24/20 06/25/20 06:59 06:59 06:59 Intake Total 1300 1664 520 Balance 1300 1664 520 Weight 122.8 kg 122.8 kg 122.8 kg General appearance: PRESENT: morbidly obese Head exam: PRESENT: atraumatic, normocephalic Eye exam: PRESENT: conjunctiva pink. ABSENT: pallor, sclera icterus Mouth exam: PRESENT: moist Respiratory exam: PRESENT: clear to auscultation [place] Cardiovascular exam: PRESENT: RRR, +S1, +S2. ABSENT: diastolic murmur, rubs, systolic murmur GI/Abdominal exam: PRESENT: normal bowel sounds, soft. ABSENT: tenderness Extremities exam: PRESENT: Expressed tenderness to palpation of her legs region wit rash. ABSENT: pedal edema Neurological exam: PRESENT: alert, awake, oriented to person, oriented to place, oriented to time, oriented to situation, CN II-XII grossly intact, motor sensory deficit Psychiatric exam: ABSENT: agitated Skin exam: PRESENT: dry, resolving erythema, petechia rash - on lower extremities, warm Results Laboratory Results: WBC 24.0 10^3/uL (4.0-10.5) H 06/23/20 05:44 RBC 4.37 10^6/uL (3.72-5.28) 06/23/20 05:44 Hgb 12.9 g/dL (12.0-15.5) 06/23/20 05:44 Hct 38.7 % (36.0-47.0) 06/23/20 05:44 MCV 89 fl (80-97) 06/23/20 05:44 MCH 29.4 pg (27.0-33.4) 06/23/20 05:44 MCHC 33.2 g/dL (32.0-36.0) 06/23/20 05:44 RDW 16.7 % (11.5-14.0) H 06/23/20 05:44 Plt Count 359 10^3/uL (150-450) 06/23/20 05:44 Lymph % (Auto) Not Reportable 06/23/20 05:44 [place] % (Auto) Not Reportable 06/23/20 05:44 Eos % (Auto) Not Reportable 06/23/20 05:44 Baso % (Auto) Not Reportable 06/23/20 05:44 Absolute Neuts (auto) Not Reportable 06/23/20 05:44 Absolute Lymphs (auto) Not Reportable 06/23/20 05:44 Absolute Monos (auto) Not Reportable 06/23/20 05:44 Absolute Eos (auto) Not Reportable 06/23/20 05:44 Absolute Basos (auto) Not Reportable 06/23/20 05:44 Total Counted 100 06/23/20 05:44 Seg Neutrophils % Not Reportable 06/23/20 05:44 Seg Neuts % (Manual) 75 % (42-78) 06/23/20 05:44 Lymphocytes % (Manual) 16 % (13-45) 06/23/20 05:44 Monocytes % (Manual) 9 % (3-13) 06/23/20 05:44 Eosinophils % (Manual) 0 % (0-6) 06/23/20 05:44 Basophils % (Manual) 0 % (0-2) 06/23/20 05:44 Abs Neuts (Manual) 18.0 10^3/uL (1.7-8.2) H 06/23/20 05:44 Abs Lymphs (Manual) 3.8 10^3/uL (0.5-4.7) 06/23/20 05:44 Abs Monocytes (Manual) 2.2 10^3/uL (0.1-1.4) H 06/23/20 05:44 Absolute Eos (Manual) 0.0 10^3/uL (0.0-0.6) 06/23/20 05:44 Abs Basophils (Manual) 0.0 10^3/uL (0.0-0.2) 06/23/20 05:44 Toxic Granulation 1+ 06/21/20 04:37 Platelet Comment ADEQUATE 06/23/20 05:44 Polychromasia SLIGHT 06/23/20 05:44 Hypochromasia 1+ 06/20/20 04:20 Poikilocytosis SLIGHT 06/21/20 04:37 Anisocytosis 1+ 06/23/20 05:44 Target Cells SLIGHT 06/23/20 05:44 Tear Drop Cells 1+ 06/20/20 04:20 Ovalocytes SLIGHT 06/21/20 04:37 ESR 110 mm/hr (0-30) H 06/18/20 02:02 PT 16.2 SEC (11.4-15.4) H 06/18/20 02:02 INR 1.28 06/18/20 02:02 APTT 30.6 SEC (23.5-35.8) 06/18/20 02:02 Sodium 138.3 mmol/L (137-145) 06/23/20 05:44 Potassium 4.6 mmol/L (3.6-5.0) 06/23/20 05:44 Chloride 99 mmol/L (98-107) 06/23/20 05:44 Carbon Dioxide 30 mmol/L (22-30) 06/23/20 05:44 Anion Gap 9 (5-19) 06/23/20 05:44 BUN 29 mg/dL (7-20) H 06/23/20 05:44 Creatinine 0.77 mg/dL (0.52-1.25) 06/23/20 05:44 Est GFR ( Amer) > 60 (>60) 06/23/20 05:44 Est GFR (MDRD) Non-Af > 60 (>60) 06/23/20 05:44 Glucose 141 mg/dL (75-110) H 06/23/20 05:44 Hemoglobin A1c % 5.6 % (4.7-6.0) 06/19/20 05:21 Calcium 9.4 mg/dL (8.4-10.2) 06/23/20 05:44 Phosphorus 4.4 mg/dL (2.5-4.5) 06/17/20 18:50 Magnesium 2.0 mg/dL (1.6-2.3) 06/17/20 18:50 Total Bilirubin 0.7 mg/dL (0.2-1.3) 06/23/20 05:44 Direct Bilirubin 0.4 mg/dL (0.0-0.4) 06/23/20 05:44 Neonat Total Bilirubin Not Reportable 06/23/20 05:44 Neonat Direct Bilirubin Not Reportable 06/23/20 05:44 Neonat Indirect Bili Not Reportable 06/23/20 05:44 AST 13 U/L (14-36) L 06/23/20 05:44 ALT 14 U/L (<35) 06/23/20 05:44 Alkaline Phosphatase 119 U/L (38-126) 06/23/20 05:44 Creatine Kinase 26 U/L (30-135) L 06/23/20 05:44 CK-MB (CK-2) < 0.22 ng/mL (<4.55) 06/23/20 05:44 Troponin I < 0.012 ng/mL 06/23/20 05:44 C-Reactive Protein 306.5 mg/L (<10.0) H 06/17/20 18:50 Total Protein 7.0 g/dL (6.3-8.2) 06/23/20 05:44 Albumin 3.3 g/dL (3.5-5.0) L 06/23/20 05:44 Globulin 4.2 g/dL (2.2-3.9) H 06/18/20 02:02 Alb/Glob Ratio Alt Meth 0.7 (0.7-1.7) 06/18/20 02:02 [place]-9-Caohwxyqg 0.6 g/dL (0.0-0.4) H 06/18/20 02:02 Krpkz-2-Vdxoltxpn 1.0 g/dL (0.4-1.0) 06/18/20 02:02 Beta Globulins 1.3 g/dL (0.7-1.3) 06/18/20 02:02 Gamma Globulins 1.3 g/dL (0.4-1.8) 06/18/20 02:02 M-[place] Not Observed g/dL (Not Observ) 06/18/20 02:02 Amylase 47 U/L (30-110) 06/17/20 18:50 Lipase 55.9 U/L (23-300) 06/17/20 18:50 TSH 1.28 uIU/mL (0.47-4.68) 06/17/20 18:50 Free T4 1.39 ng/dL (0.78-2.19) 06/17/20 18:50 Immunoglobulin A 282 mg/dL (87-352) 06/18/20 02:02 Immunoglobulin G 1474 mg/dL (586-1602) 06/18/20 02:02 Immunoglobulin M 31 mg/dL (26-217) 06/18/20 02:02 Serum Immunofixation Comment (.) 06/18/20 02:02 Immunofixation Note Comment (.) 06/18/20 02:02 Urine Color LAM 06/17/20 22:59 Urine Appearance CLOUDY 06/17/20 22:59 Urine pH 5.0 (5.0-9.0) 06/17/20 22:59 Ur Specific [place] 1.028 06/17/20 22:59 Urine Protein 100 mg/dL (NEGATIVE) H 06/17/20 22:59 Urine Glucose (UA) NEGATIVE mg/dL (NEGATIVE) 06/17/20 22:59 Urine Ketones TRACE mg/dL (NEGATIVE) H 06/17/20 22:59 Urine Blood LARGE (NEGATIVE) H 06/17/20 22:59 Urine Nitrite (Reflex) NEGATIVE (NEGATIVE) 06/17/20 22:59 Urine Bilirubin SMALL (NEGATIVE) H 06/17/20 22:59 Urine Urobilinogen 4.0 mg/dL (<2.0) H 06/17/20 22:59 Leukocyte Esterase Rfl TRACE (NEGATIVE) H 06/17/20 22:59 Urine RBC (Auto) >182 /HPF 06/17/20 22:59 U Hyaline Cast (Auto) 28 /LPF 06/17/20 22:59 Urine WBC (Reflex) 12 /HPF 06/17/20 22:59 Squamous Epi Cells Auto 3 /HPF 06/17/20 22:59 Urine Mucus (Auto) MANY /LPF 06/17/20 22:59 Urine Creatinine 564.5 mg/dL (15-278) H 06/17/20 22:59 Protein/Creatinin Ratio 0.1 mg/mg (0.0-0.2) 06/17/20 22:59 Urine Total Protein 50.5 mg/dL (<12) H 06/17/20 22:59 Urine Ascorbic Acid NEGATIVE (NEGATIVE) 06/17/20 22:59 Urine Opiates Screen UNCONFIRMED POSITIVE 06/17/20 22:59 Urine Methadone Screen NEGATIVE 06/17/20 22:59 Ur Barbiturates Screen NEGATIVE 06/17/20 22:59 Ur Phencyclidine Scrn NEGATIVE 06/17/20 22:59 Ur Amphetamines Screen NEGATIVE 06/17/20 22:59 U Benzodiazepines Scrn NEGATIVE 06/17/20 22:59 Urine Cocaine Screen NEGATIVE 06/17/20 22:59 U Marijuana (THC) Screen NEGATIVE 06/17/20 22:59 Albumin (MAYRA) 2.7 g/dL (2.9-4.4) L 06/18/20 02:02 BINDU Comment Comment (.) 06/18/20 02:02 c-ANCA Antibody <1:20 titer (Neg:<1:20) 06/18/20 02:02 Anti-Proteinase 3 Intrp <3.5 U/mL (0.0-3.5) 06/18/20 02:02 Atypical p-ANCA <1:20 titer (Neg:<1:20) 06/18/20 02:02 p-ANCA Antibody <1:20 titer (Neg:<1:20) 06/18/20 02:02 Myeloperoxidase Ab <9.0 U/mL (0.0-9.0) 06/18/20 02:02 ISELA-1 Antibody <0.2 AI (0.0-0.9) 06/18/20 02:02 SS-A/Ro Antibody <0.2 AI (0.0-0.9) 06/18/20 02:02 SS-B/La Antibody <0.2 AI (0.0-0.9) 06/18/20 02:02 Double Strand DNA Ab <1 IU/mL (0-9) 06/18/20 02:02 Chromatin Antibody <0.2 AI (0.0-0.9) 06/18/20 02:02 Anti-Centromere Interp <0.2 AI (0.0-0.9) 06/18/20 02:02 RPR NONREACTIVE (NONREACTIVE) 06/18/20 02:02 HIV 1&2 Antibody NEGATIVE (NEGATIVE) 06/18/20 02:02 Influenza A (RT-PCR) NEGATIVE (NEGATIVE) 06/17/20 22:01 Influenza B (RT-PCR) NEGATIVE (NEGATIVE) 06/17/20 22:01 RSV (RT-PCR) NEGATIVE (NEGATIVE) 06/17/20 22:01 Spotted Fever Grp IgG Positive (Negative) A 06/18/20 02:02 Rickettsia IgG Ab <1:64 (Neg <1:64) 06/18/20 02:02 Rickettsia IgM Ab 0.20 index (0.00-0.89) 06/18/20 02:02 SARS-CoV-2 Rap RNA(RT-PCR) NEGATIVE (NEGATIVE) 06/17/20 22:01 06/18/20 06/18/20 06/18/20 02:02 07:30 13:53 CK-MB (CK-2) < 0.22 < 0.22 < 0.22 Troponin I < 0.012 < 0.012 < 0.012 06/23/20 05:44 CK-MB (CK-2) < 0.22 Troponin I < 0.012 Plan Health Concerns: Medication compliance and risk for readmission. Plan of Treatment: Maintain on preadmission medication and appropriate antibiotic therapy. Taper off oral Prednisone usage. Goals: Reduce readmission risk level. Follow up closely in the community. Time Spent: Greater than 30 Minutes Stroke Is this a Stroke Patient?: No Acute Heart Failure Is this a Heart Failure Patient?: No
[2020-06-24 16:19] VITALS: BP 145/92
== END 2020-06-24 17:15 | DRG 607 ==
LOC: ER 16:39 → EH 06-18 00:43 → 4W 06-18 03:00
PROVIDERS: ADMIT Internal Medicine Geriatric Medicine; ATTEND Internal Medicine Geriatric Medicine
DX: L30.8 Other specified dermatitis (principal); N30.01 Acute cystitis with hematuria; Z20.822 Contact with and (suspected) exposure to COVID-19; I10 Essential (primary) hypertension; E78.5 Hyperlipidemia, unspecified; K59.00 Constipation, unspecified; E66.01 Morbid (severe) obesity due to excess calories; F25.9 Schizoaffective disorder, unspecified; B96.89 Other specified bacterial agents as the cause of diseases classified elsewhere; F17.210 Nicotine dependence, cigarettes, uncomplicated; K21.9 Gastro-esophageal reflux disease without esophagitis; D72.829 Elevated white blood cell count, unspecified; Z79.899 Other long term (current) drug therapy; Z79.82 Long term (current) use of aspirin; Z88.8 Allergy status to other drugs, medicaments and biological substances
CPT/HCPCS: 36415; 80053; 80307; 81001; 82150; 82550; 82553; 82570; 83036; 83516; 83690; 83735; 84100; 84156; 84439; 84443; 84484; 85025; 85610; 85652; 85730; 86140; 86225; 86235; 86256; 86320; 86592; 86701; 86757; 87040; 87086; 87088; 87186; 99285; 0241U; C9803; J0696; J2920; J7512